=== PATIENT | male | born 1960 | race Caucasian/White ===

== ENCOUNTER 2017-09-27 03:53 | Inpatient (IN) | payer OTHER ==
--- NOTE | 2017-09-27 04:12 | C.PDOC ---
History Of Present Illness Pt presents with right upper quadrant,periumbilical pain. Sudden onset. Some nausea. No f/c. Decreased po intake. Pain occasional radiating to the back Time Seen by Provider: 09/27/17 04:11 Chief Complaint (Nursing): Abdominal Pain History Per: Patient History/Exam Limitations: no limitations Onset/Duration Of Symptoms: Hrs (2) Current Symptoms Are (Timing): Still Present Context: Other Severity: Moderate Pain Scale Rating Of: 5 Location Of Pain/Discomfort: RUQ, Epigastric Radiation Of Pain To:: None Quality Of Discomfort: Sharp, Stabbing Associated Symptoms: Nausea. denies: Fever, Chills, Vomiting Exacerbating Factors: None Alleviating Factors: None Last Bowel Movement: Yesterday Recent travel outside of the [place]: No Additional History Per: Family Past Medical History Reviewed: Historical Data, Nursing Documentation, Vital Signs Vital Signs: Last Vital Signs Temp 97.4 F L 09/27/17 04:07 Pulse 60 09/27/17 05:06 Resp 20 09/27/17 05:06 BP 120/74 09/27/17 05:06 Pulse Ox 97 09/27/17 05:06 Family History: States: No Known Family Hx - Social History Hx Alcohol Use: No Hx Substance Use: No - Immunization History Hx Tetanus Toxoid Vaccination: No Hx Influenza Vaccination: No Hx Pneumococcal Vaccination: No Review Of Systems Constitutional: Negative for: Fever, Chills Eyes: Negative for: Redness ENT: Negative for: Throat Pain Cardiovascular: Negative for: Chest Pain Respiratory: Negative for: Shortness of Breath Gastrointestinal: Positive for: Nausea, Vomiting, Abdominal Pain Genitourinary: Negative for: Dysuria Musculoskeletal: Negative for: Back Pain Skin: Negative for: Rash Neurological: Negative for: Weakness Psych: Negative for: Anxiety Physical Exam - Physical Exam Appears: Non-toxic Skin: Warm, Dry Head: Normacephalic Eye(s): bilateral: Normal Inspection Oral Mucosa: Dry Neck: Supple Chest: Symmetrical Cardiovascular: Rhythm Regular Respiratory: No Rales, No Rhonchi, No Wheezing Gastrointestinal/Abdominal: Bowel Sounds (tympanic to percussion), Soft, Tenderness (ruq and mid epigastric), No Distention, No Guarding, No Rebound Back: No CVA Tenderness Male Genital: No Inguinal Tenderness Extremity: Normal ROM Extremity: Bilateral: Atraumatic Neurological/Psych: Oriented x3, Normal Speech, Normal Cognition Gait: Steady ED Course And Treatment - Laboratory Results Result Diagrams: 09/27/17 04:24 09/27/17 04:24 ECG: Interpreted By Me, Viewed By Me ECG Rhythm: Sinus Rhythm (64), Nonspecific Changes O2 Sat by Pulse Oximetry: 100 Pulse Ox Interpretation: Normal Progress Note: 3:45 AM vitals stable, arousable Disposition Discussed With Dr.: Pee Connell Comment: accepted the pt on his service and took over the care at 6:37AM Doctor Will See Patient In The: Hospital Counseled Patient/Family Regarding: Studies Performed, Diagnosis - Disposition Disposition: HOSPITALIZED Disposition Time: 04:11 Condition: GUARDED Forms: [facility] ([place]) - POA Present On Arrival: Poor Glycemic Control - Clinical Impression Clinical Impression: Abdominal pain, Pancreatic cyst, Pancreatic mass Decision To Admit - Pt Status Changed To: Hospital Disposition Of: Inpatient - Admit Certification Admit to Inpatient:: After my assessment, the patient will require hospitalization for at least two midnights. This is because of the severity of symptoms shown, intensity of services needed, and/or the medical risk in this patient being treated as an outpatient. - InPatient: Physician Admission Certification:: After my assessment, the patient will require hospitalization for at least two midnights. This is because of the severity of symptoms shown, intensity of services needed, and/or the medical risk in this patient being treated as an outpatient. - . Bed Request Type: Regular Admitting Physician: Pee Connell Patient Diagnosis: Abdominal pain, Pancreatic cyst, Pancreatic mass
[2017-09-27] MEDS ORDERED: Sodium Chloride 0.9% 1,000 ML IV ONE ×2 (04:16→06:35)
[2017-09-27] MEDS ORDERED: Morphine 4 MG/ML VIAL ONE (04:23)
[2017-09-27] MEDS ORDERED: Sodium Chloride 0.9% 1,000 ML ONE (04:24)
[2017-09-27 04:26] LABS: BASO % 0.1 % (0.0-2.0); HEMOGLOBIN 14.2 g/dL (12.0-18.0); LYMPH # 1.1 K/uL (1.0-4.3); LYMPH % 8.4 % (20.0-40.0); MEAN CELL VOLUME 87.6 fL (80.0-94.0); MEAN CORPUSCULAR HEMOGLOBIN 30.6 pg (27.0-31.0); MEAN CORPUSCULAR HGB CONC 34.9 g/dL (33.0-37.0); MEAN PLATELET VOLUME 7.7 fL (7.2-11.7); MONO # 0.6 K/uL (0.0-0.8); MONO % 4.1 % (0.0-10.0); NEUT # 11.7 K/uL (1.8-7.0); NEUT % 87.4 % (50.0-75.0); PLATELET COUNT 243 K/uL (130-400); RBC 4.63 Mil/uL (4.40-5.90); RED CELL DISTRIBUTION WIDTH 14.5 % (11.5-14.5); WHITE BLOOD COUNT 13.4 K/uL (4.8-10.8)
[2017-09-27 04:35] LABS: PROTHROMBIN TIME 11.7 SECONDS (9.7-12.2)
[2017-09-27 04:35] LABS: URINE BILIRUBIN NEGATIVE (NEGATIVE); URINE BLOOD NEGATIVE (NEGATIVE); URINE CLARITY Hazy (Clear); URINE COLOR Yellow (YELLOW); URINE GLUCOSE (UA) NORMAL (Normal); URINE LEUKOCYTE ESTERASE NEG Leu/uL (Negative); URINE PROTEIN NEGATIVE (NEGATIVE); URINE UROBILINOGEN NORMAL mg/dL (0.2-1.0)
[2017-09-27 04:39] LABS: ALB/GLOB RATIO 1.5 (1.0-2.1); ALT/SGPT 29 U/L (21-72); AST/SGOT 17 U/L (17-59); BLOOD UREA NITROGEN 10 mg/dL (9-20); CALCIUM 8.2 mg/dl (8.6-10.4); GFR AFRICAN-AMERICAN > 60; GFR NON-AFRICAN AMERICAN > 60; LIPASE 65 U/L (23-300)
[2017-09-27] MEDS ORDERED: Iodixanol 320 MG/ML 100 ML BOTTLE IV ONE ×2 (04:44→14:01)
[2017-09-27 04:50] LABS: BANDS 1 % (0-2); LYMPHOCYTE 8 % (20-40); MONOCYTE 5 % (0-10); NEUTROPHIL 86 % (50-75); PLATELET ESTIMATE NORMAL (NORMAL); TOTAL CELLS COUNTED 100
--- NOTE | 2017-09-27 05:38 | CT ---
EXAM: CT Abdomen and Pelvis Without Intravenous Contrast CLINICAL HISTORY: 57 years old, male; Pain; Abdominal pain; Additional info: R flank pain TECHNIQUE: Axial computed tomography images of the abdomen and pelvis without intravenous contrast. All CT scans at this facility use one or more dose reduction techniques, viz.: automated exposure control; ma/kV adjustment per patient size (including targeted exams where dose is matched to indication; i.e. head); or iterative reconstruction technique. 698 images are submitted. Coronal and sagittal reformatted images were created and reviewed. Axial reformatted images were created and reviewed. COMPARISON: No relevant prior studies available. FINDINGS: Lower thorax: There is bibasilar atelectasis. ABDOMEN:Limitations: Absence of IV contrast decreases sensitivity for detecting vascular and visceral injury and abnormality. Liver: Unremarkable. Gallbladder and bile ducts: Unremarkable. No ductal dilation. Pancreas: There is a large hypodense pancreatic tail mass measuring 8.5 x 7.7 cm representing pseudocyst versus pancreatic neoplasm. Spleen: Unremarkable. No splenomegaly. Adrenals: Unremarkable. No mass. Kidneys and ureters: Faint densities in the medullary regions of both kidneys are somewhat nonspecific, perhaps reflecting dense solute, Philip's plaque, tiny calcifications, or other debris. Stomach and bowel: Diverticulosis. Nonspecific thickening of the colon likely due to underdistention versus nonspecific colitis. Appendix: Normal appendix. PELVIS: Bladder: Unremarkable. Reproductive: Enlarged prostate gland with calcification. Possible hydrocele. ABDOMEN and PELVIS: Intraperitoneal space: Unremarkable. No free air. No significant fluid collection. Bones/joints: No acute fracture. No dislocation. Soft tissues: Unremarkable. Vasculature: Unremarkable. No abdominal aortic aneurysm. Lymph nodes: Unremarkable. No enlarged lymph nodes. IMPRESSION: 1. There is a large hypodense pancreatic tail mass measuring 8.5 x 7.7 cm representing pseudocyst versus pancreatic neoplasm.
[2017-09-27 10:17] LABS: AMYLASE 72 U/L (30-110)
--- NOTE | 2017-09-27 12:38 | CP.PCM.PN ---
Subjective - Date & Time of Evaluation Date of Evaluation: 09/27/17 Time of Evaluation: 12:35 - Subjective Subjective: CC: abdominal pain and vomiting This is a 57yo M who came to the hospital for abdominal pain and vomiting; he states he has had this happen one time before 2 months ago but not associated with vomiting; he states his abdomen feels "full" and that the pain will not go away and he does not feel like eating either. He currently denies fevers/chills , CADENA, CP, SOB, abdominal pain, N/V/d, dysuria/freq/urg or lower extremity pain/ swelling. PMhx: denies Meds: denies Surgeries: Denies Allergies: denies Famhx: HTN on mom and dads side, as well as DM Social: smokes 1/2 to 1 pack per day for 35 years, social drinker on weekends, indepdendent in all IADL and ADL Objective - Vital Signs/Intake and Output Vital Signs (last 24 hours): Temp Pulse Resp BP Pulse Ox 98 F 69 20 141/70 97 09/27/17 07:48 09/27/17 07:48 09/27/17 07:48 09/27/17 07:48 09/27/17 07:48 - Medications Medications: Current Medications Belladonna/Phenobarbital () 1 tab PO TID VANDANA Sodium Chloride (Sodium Chloride 0.9%) 1,000 mls @ 100 mls/hr IV .Q10H ONE Stop: 09/27/17 16:34 Last Admin: 09/27/17 10:33 Dose: 100 mls/hr Morphine Sulfate (Morphine) 4 mg IVP Q4H PRN PRN Reason: Pain, severe (8-10) Ondansetron HCl (Zofran Inj) 4 mg IVP Q6H PRN PRN Reason: Nausea/Vomiting Pneumococcal Polyvalent Vaccine (Pneumovax 23 Vaccine) 0.5 ml IM .ONCE ONE Stop: 09/29/17 10:01 - Labs Labs: 09/27/17 04:24 09/27/17 04:24 PT 11.7 SECONDS (9.7-12.2) 09/27/17 04:16 INR 1.0 09/27/17 04:16 APTT 26 SECONDS (21-34) 09/27/17 04:16 - Constitutional Appears: Well, Non-toxic - Head Exam Head Exam: ATRAUMATIC, NORMAL INSPECTION - Eye Exam Eye Exam: EOMI - ENT Exam ENT Exam: Mucous Membranes Moist - Neck Exam Neck Exam: Full ROM. absent: Lymphadenopathy - Respiratory Exam Respiratory Exam: Clear to Ausculation Bilateral, NORMAL BREATHING PATTERN. absent: Rales, Rhonchi, Wheezes - Cardiovascular Exam Cardiovascular Exam: REGULAR RHYTHM, +S1, +S2 - GI/Abdominal Exam GI & Abdominal Exam: Soft, Normal Bowel Sounds. absent: Tenderness, Organomegaly - Extremities Exam Extremities Exam: Full ROM. absent: Calf Tenderness - Back Exam Back Exam: NORMAL INSPECTION. absent: CVA tenderness (L), CVA tenderness (R) - Neurological Exam Neurological Exam: Alert, Awake, Oriented x3 - Skin Skin Exam: Warm Assessment and Plan - Assessment and Plan (Free Text) Assessment: 57yo M admitted to the hospital for abdominal pain and vomiting, found to have pancreatic cyst vs neoplasm Pancreatic Cyst vs Neoplasm -CT Abdomen shows cyst vs neoplasm; please refer to full report -MRCP w/ and w/o contrast ordered, as well as CT w/ contast; f/u results -Surgery; Dr. Solomon on board; thank you for your help; appreciate recs -f/u CEA and CA-19-9 markers AFP, hepatitis panel, TSH, HIV, Lipid Panel as well as HBa1C -CMP WNL no liver abnormalities or elevated bili Proph -Regular diet unless procedures are planned -pepcid -lovenox All management as per Dr. Connell
[2017-09-27] MEDS ORDERED: Gadodiamide 287 mg/ml 20 ml IV ONE (13:00)
--- NOTE | 2017-09-27 13:15 | CP.PCM.CON ---
History of Present Illness - History of Present Illness History of Present Illness: Hepatobiliary Surgery: Dr Solomon Pt is a pleasant 57M who presented to ED with sudden onset abdominal pain. Pt reports pain is epigastric and radiates to the mid back. States pain was 10/10 at one point but now is more of a dull 3/10. Pain was associated with 2 episodes of emesis, non-blood and non-billous. Not associated with eating. Pt denies any history of fevers, chills, sweats, recent weight loss, jaundice, anorexia, diarrhea or constipation. States he believes he had one similar episode a few months back but that resolved on its own. CT scan in ED demonstrated distal pancreatic tail mass concerning for psuedocyst vs neoplasm. PMH: none PSH; none Fam Hx: Mother/Father with HTN, denies cancer history Social: 1/2 ppd smoker, social drinker Review of Systems - Review of Systems All systems: reviewed and no additional remarkable complaints except (as per hpi ) Past Patient History - Past Medical History & Family History Past Medical History?: No - Past Social History Smoking Status: Unknown If Ever Smoked - MUSCULOSKELETAL/RHEUMATOLOGICAL Hx Falls: No - PSYCHIATRIC Hx Substance Use: No - SURGICAL HISTORY Hx Surgeries: No - ANESTHESIA Hx Anesthesia: No Meds Allergies/Adverse Reactions: Allergies Allergy/AdvReac Type Severity Reaction Status Date / Time No Known Allergies Allergy Verified 09/27/17 04:10 - Medications Medications: Current Medications Belladonna/Phenobarbital () 1 tab PO TID VANDANA Enoxaparin Sodium (Lovenox) 40 mg SC DAILY VANDANA Famotidine (Pepcid) 20 mg PO DAILY VANDANA Sodium Chloride (Sodium Chloride 0.9%) 1,000 mls @ 100 mls/hr IV .Q10H ONE Stop: 09/27/17 16:34 Last Admin: 09/27/17 10:33 Dose: 100 mls/hr Morphine Sulfate (Morphine) 4 mg IVP Q4H PRN PRN Reason: Pain, severe (8-10) Ondansetron HCl (Zofran Inj) 4 mg IVP Q6H PRN PRN Reason: Nausea/Vomiting Pneumococcal Polyvalent Vaccine (Pneumovax 23 Vaccine) 0.5 ml IM .ONCE ONE Stop: 09/29/17 10:01 Physical Exam - Constitutional Appears: Non-toxic, No Acute Distress - Eye Exam Eye Exam: EOMI, Normal appearance, PERRL. absent: Scleral icterus - ENT Exam ENT Exam: Mucous Membranes Moist - Respiratory Exam Respiratory Exam: absent: Accessory Muscle Use, Respiratory Distress - Cardiovascular Exam Cardiovascular Exam: REGULAR RHYTHM. absent: Tachycardia - GI/Abdominal Exam GI & Abdominal Exam: Soft. absent: Distended, Firm, Guarding, Hernia, Mass, Rigid, Tenderness - Extremities Exam Extremities exam: Negative for: pedal edema - Neurological Exam Neurological exam: Alert, Oriented x3 - Psychiatric Exam Psychiatric exam: Normal Affect, Normal Mood - Skin Skin Exam: Normal Color, Warm Results - Vital Signs Recent Vital Signs: Last Vital Signs Temp 98 F 09/27/17 07:48 Pulse 69 09/27/17 07:48 Resp 20 09/27/17 07:48 BP 141/70 09/27/17 07:48 Pulse Ox 97 09/27/17 07:48 - Labs Result Diagrams: 09/27/17 04:24 09/27/17 04:24 Labs: Laboratory Results - last 24 hr 09/27/17 09/27/17 09/27/17 04:16 04:24 04:24 WBC 13.4 H RBC 4.63 Hgb 14.2 Hct 40.6 MCV 87.6 MCH 30.6 MCHC 34.9 RDW 14.5 Plt Count 243 MPV 7.7 Neut % (Auto) 87.4 H Lymph % (Auto) 8.4 L Mcduffie % (Auto) 4.1 Eos % (Auto) 0.0 Baso % (Auto) 0.1 Neut # (Auto) 11.7 H Lymph # (Auto) 1.1 [place]duffie # (Auto) 0.6 Eos # (Auto) 0.0 Baso # (Auto) 0.0 Neutrophils % (Manual) 86 H Band Neutrophils % 1 Lymphocytes % (Manual) 8 L Monocytes % (Manual) 5 Platelet Estimate Normal PT 11.7 INR 1.0 APTT 26 Sodium Potassium Chloride Carbon Dioxide Anion Gap BUN Creatinine Est GFR ( Amer) Est GFR (Non-Af Amer) Random Glucose Calcium Total Bilirubin AST ALT Alkaline Phosphatase Total Protein Albumin Globulin Albumin/Globulin Ratio Amylase Lipase Carcinoembryonic Ag CA 19-9 Antigen Urine Color Yellow Urine Clarity Hazy Urine pH 7.0 Ur Specific [place] 1.027 Urine Protein Negative Urine Glucose (UA) Normal Urine Ketones Trace Urine Blood Negative Urine Nitrate Negative Urine Bilirubin Negative Urine Urobilinogen Normal Ur Leukocyte Esterase Neg Urine WBC (Auto) 1 Urine RBC (Auto) 5 H 09/27/17 09/27/17 04:24 11:12 WBC RBC Hgb Hct MCV MCH MCHC RDW Plt Count MPV Neut % (Auto) Lymph % (Auto) [place]duffie % (Auto) Eos % (Auto) Baso % (Auto) Neut # (Auto) Lymph # (Auto) [place]duff[place] # (Auto) Eos # (Auto) Baso # (Auto) Neutrophils % (Manual) Band Neutrophils % Lymphocytes % (Manual) Monocytes % (Manual) Platelet Estimate PT INR APTT Sodium 140 Potassium 4.1 Chloride 103 Carbon Dioxide 24 Anion Gap 17 BUN 10 Creatinine 0.7 L Est GFR ( Amer) > 60 Est GFR (Non-Af Amer) > 60 Random Glucose 136 H Calcium 8.2 L Total Bilirubin 0.3 AST 17 ALT 29 Alkaline Phosphatase 79 Total Protein 6.7 Albumin 4.0 Globulin 2.7 Albumin/Globulin Ratio 1.5 Amylase 72 Lipase 65 Carcinoembryonic Ag 1.5 CA 19-9 Antigen 9.0 Urine Color Urine Clarity Urine pH Ur Specific [place] Urine Protein Urine Glucose (UA) Urine Ketones Urine Blood Urine Nitrate Urine Bilirubin Urine Urobilinogen Ur Leukocyte Esterase Urine WBC (Auto) Urine RBC (Auto) Assessment & Plan - Assessment and Plan (Free Text) Assessment: 57M with distal pancreatic tail mass Plan: CEA, CA-19-[address] but with IV contrast further recommendations to follow pending results d/w Dr Juanito Park, PGY3 - Date & Time Date: 09/27/17 Time: 11:58
[2017-09-27] MEDS: Belladonna-Phenobarbital PO SCH ×2 (14:37→18:02)
--- NOTE | 2017-09-27 14:43 | MRI ---
MRI abdomen without/with IV contrast MRCP Indication: Pancreatic mass Technique: Multiplanar, multi sequence magnetic resonance images of the abdomen were obtained without and with the administration of intravenous gadolinium using a multi phase abdomen protocol. Rotating maximum intensity projection images of the biliary system were generated. A total of 1055 images submitted for review Comparison: CT abdomen and pelvis without contrast performed 09/27/17 Findings: Cholelithiasis. There is no intrahepatic biliary ductal dilatation. The common bile duct appears within normal limits in caliber and tapers distally. The pancreatic duct appears within normal limits of caliber. No filling defects are seen in the common bile duct or pancreatic duct. 7.9 x 7.2 cm cystic lesion at the level of the pancreatic tail without evidence of post-contrast enhancement. The liver, spleen, and adrenal glands appear grossly unremarkable. The kidneys enhance symmetrically. No evidence of hydronephrosis or obstructing calculus. No bulky adenopathy identified. Limited views of the inferior thorax appear unremarkable. Impression: 7.9 x 7.2 cm cystic lesion at the level the pancreatic tail. Differential diagnosis includes cystic neoplasm versus sequela of prior pancreatitis (such as pseudocyst). No filling defects seen within the common bile duct which appears within normal limits of caliber. Cholelithiasis.
--- NOTE | 2017-09-27 17:30 | CARD ---
APPROVED REPORT EKG Measurement Heart [id number] <Conclusion> Normal sinus rhythm Normal ECG
[2017-09-27] MEDS ORDERED: Morphine 4 MG/ML VIAL IVP PRN (20:30)
--- NOTE | 2017-09-28 04:32 | CON ---
DATE: 09/27/2017. LOCATION: 369, bed A. This is from Dr. Andrew to Dr. Pee Connell. I was called for GI consultation by the admitting MD as well as the ER staff. The patient is seen and fully examined on 09/27/2017 for GI consultation. The entire chart is reviewed including but not limited to most recent lab and radiology study results, current and the previous medication list, current and the previous medical events, allergy to medication list, as well as all the available current and previous medical records. Case discussed at length with staff GI consultation. HISTORY OF PRESENT ILLNESS: This is a 57-year-old male who was admitted to hospital through the emergency room with the main complain of mid epigastric and right upper abdominal pain as well as periumbilical pain sudden in onset with associated dyspepsia and nausea, but no reported active bleeding. No vomiting, but loss of appetite recently with decrease oral intake. The patient radiate occasionally to the back. No chest pain or palpitations. No reported active bleeding. No chills or fever. PAST MEDICAL HISTORY: Is limited, but not related to major disease. ALLERGIES: TO MEDICATIONS, NONE KNOWN. CURRENT MEDICATIONS: Medication lists were reviewed post admission. FAMILY HISTORY: Unknown. SOCIAL HISTORY: Denied any cigarette smoking or alcohol intake. LABORATORY DATA: After being admitted to the hospital, the patient was found to have normal CBC, but elevated white blood cell to 13.4, increased blood glucose level 136. Initial CAT scan of the abdomen and pelvis was done indicative of possible pancreatic pseudocyst versus pancreatic mass lesion with possible gallbladder small stones. PHYSICAL EXAMINATION: GENERAL: A 57 years old male, speaks Faroese only, all the information are obtained from medical record and medical staff and nursing staff notes as well as through internship. The patient appears to be awake, alert and oriented, afebrile with pulse of 62, respiratory 20 to 22, blood pressure 124/72. HEENT: Showed pale dry oral mucoid membrane. Nonicteric sclerae. LUNGS: A few scattered crepitation. Decreased air entry at bases. HEART: Positive S1 and S2. LYMPH NODES: No lymphadenitis or lymphadenopathy. ABDOMEN: Soft with mid epigastric as well as right upper quadrant mid abdominal line tenderness. No mass or organomegaly. No rebound tenderness or guarding. RECTAL: The patient refused. EXTREMITIES: Without significant clubbing, cyanosis or edema. NEUROLOGIC: No reported new neurological deficits, sensory or motor. IMPRESSION: 1. Abnormal CAT scan of the abdomen with possible pancreatic pseudocyst versus pancreatic mass lesion with possible early stage of acute pancreatitis. 2. Peptic ulcer disease. SUGGESTIONS: 1. Agree with your plan. 2. Lipid profile with repeat serum, lipase and amylase level. 3. CEA, CA 19-9, and alpha fetoprotein. 4. Proton pump inhibitors IV. 5. MRCP for more details due to the pancreatic lesion. 6. The patient may need CAT scan guided needle biopsy of the pancreatic lesion to be done by IR staff. 7. Further recommendation to follow. Rudi Andrew MD
[2017-09-28 07:34] LABS: BASO % 0.5 % (0.0-2.0); EOS # 0.1 K/uL (0.0-0.7); EOS % 0.7 % (0.0-4.0); HEMOGLOBIN 14.1 g/dL (12.0-18.0); LYMPH # 2.2 K/uL (1.0-4.3); LYMPH % 24.2 % (20.0-40.0); MEAN CELL VOLUME 89.1 fL (80.0-94.0); MEAN CORPUSCULAR HEMOGLOBIN 31.3 pg (27.0-31.0); MEAN CORPUSCULAR HGB CONC 35.2 g/dL (33.0-37.0); MEAN PLATELET VOLUME 7.8 fL (7.2-11.7); MONO # 0.6 K/uL (0.0-0.8); MONO % 6.9 % (0.0-10.0); NEUT # 6.2 K/uL (1.8-7.0); NEUT % 67.7 % (50.0-75.0); NRBC % 0.1 % (0.0-2.0); RBC 4.49 Mil/uL (4.40-5.90); RED CELL DISTRIBUTION WIDTH 14.2 % (11.5-14.5); WHITE BLOOD COUNT 9.2 K/uL (4.8-10.8)
--- NOTE | 2017-09-28 07:38 | HP ---
HISTORY OF PRESENT ILLNESS: This is a 57-year-old male with chief complaint of abdominal pain. The patient came to the ER found to have a mass in the pancreas advised admission. The patient does not smoke. PHYSICAL EXAMINATION: GENERAL: The patient is awake, alert, and oriented. VITAL SIGNS: Temperature 98 and pulse 90. HEENT: Within normal limits. NECK: Supple. CHEST: Symmetrical. HEART: Regular. ABDOMEN: Soft. EXTREMITIES: No edema. ASSESSMENT AND PLAN: The patient has a lot of pancreatic mass. The patient on bed rest. CT of the abdomen, MRCP, biliary surgery consult. Pee Connell MD
[2017-09-28 08:11] LABS: ALB/GLOB RATIO 1.1 (1.0-2.1); ALBUMIN 3.7 g/dL (3.5-5.0); ALT/SGPT 31 U/L (21-72); AST/SGOT 24 U/L (17-59); BLOOD UREA NITROGEN 5 mg/dL (9-20); CALCIUM 8.6 mg/dl (8.6-10.4); GFR AFRICAN-AMERICAN > 60; GFR NON-AFRICAN AMERICAN > 60; HDL CHOLESTEROL 48 mg/dL (30-70)
[2017-09-28 08:21] LABS: LDL CHOLESTEROL 97 mg/dL (0-129)
[2017-09-28 09:02] LABS: HEPATITIS B SURFACE AG Negative (NEGATIVE)
[2017-09-28 09:09] LABS: HEPATITIS A IGM NEGATIVE (NEGATIVE); HEPATITIS B CORE AB NEGATIVE (NEGATIVE)
[2017-09-28 09:19] LABS: HEPATITIS C ANTIBODY NEGATIVE (NEGATIVE)
[2017-09-28] MEDS: Belladonna-Phenobarbital PO SCH ×3 (09:57→17:43)
[2017-09-28] MEDS: Enoxaparin 40 mg Syringe SC SCH (09:58)
--- NOTE | 2017-09-28 10:39 | CT ---
PROCEDURE: CT Abdomen and Pelvis with contrast HISTORY: eval panc mass COMPARISON: CT abdomen/ pelvis 09/27/2017 and MRI abdomen 09/27/2017 TECHNIQUE: Contrast dose: 100 cc Visipaque 320 Radiation dose: Total exam DLP = 1307.15 mGy-cm. This CT exam was performed using one or more of the following dose reduction techniques: Automated exposure control, adjustment of the mA and/or kV according to patient size, and/or use of iterative reconstruction technique. FINDINGS: LOWER THORAX: Bilateral lower lobe linear pleural-based scar/atelectasis LIVER: Unremarkable. No gross lesion or ductal dilatation. GALLBLADDER AND BILE DUCTS: Unremarkable. PANCREAS: Fluid density pancreatic tail mass measuring approximately 7.6 x 8.7 by 8.9 cm. Thin peripheral enhancing wall common nonspecific. No nodular mural thickening. No central solid component appreciated. Nonspecific. Pancreatic cyst versus intrapancreatic pseudocyst versus cystic pancreatic neoplasm. No pancreatic ductal dilatation. SPLEEN: Unremarkable. ADRENALS: Unremarkable. No mass. KIDNEYS AND URETERS: Unremarkable. No hydronephrosis. No solid mass. VASCULATURE: Unremarkable. No aortic aneurysm. BOWEL: Unremarkable. No obstruction. No gross mural thickening. APPENDIX: Normal appendix. PERITONEUM: Unremarkable. No free fluid. No free air. LYMPH NODES: Unremarkable. No enlarged lymph nodes. BLADDER: Suboptimally distended. Mild mural thickening consistent with poor distension. REPRODUCTIVE: Normal prostate BONES: No acute fracture. OTHER FINDINGS: None. IMPRESSION: 8.9 cm fluid density pancreatic tail mass common nonspecific. See above. No other significant abnormality.
--- NOTE | 2017-09-28 10:56 | CP.PCM.PN ---
Subjective - Date & Time of Evaluation Date of Evaluation: 09/28/17 Time of Evaluation: 11:00 - Subjective Subjective: PGY2 Medicine Note for Dr. Connell; all management as per Dr. Connell This patient was seen and examined at bedside this AM; deneis any acute complaints or overnight events; denies fevers/chills, CADENA, CP, SOB, abdominal pain, N/V/D, dysuria/freq/urg or lower extremity pain/swelling. Objective - Vital Signs/Intake and Output Vital Signs (last 24 hours): Temp Pulse Resp BP Pulse Ox 98.4 F 72 20 114/76 96 09/28/17 07:57 09/28/17 07:57 09/28/17 07:57 09/28/17 07:57 09/28/17 07:57 Intake and Output: 09/28/17 09/28/17 06:59 18:59 Intake Total 800 Balance 800 - Medications Medications: Current Medications Belladonna/Phenobarbital () 1 tab PO TID [facility] Last Admin: 09/28/17 09:57 Dose: 1 tab Enoxaparin Sodium (Lovenox) 40 mg SC DAILY [facility] Last Admin: 09/28/17 09:58 Dose: 40 mg Famotidine (Pepcid) 20 mg PO DAILY [facility] Last Admin: 09/28/17 09:57 Dose: 20 mg Morphine Sulfate (Morphine) 4 mg IVP Q4H PRN PRN Reason: Pain, severe (8-10) Ondansetron HCl (Zofran Inj) 4 mg IVP Q6H PRN PRN Reason: Nausea/Vomiting Pneumococcal Polyvalent Vaccine (Pneumovax 23 Vaccine) 0.5 ml IM .ONCE ONE Stop: 09/29/17 10:01 - Labs Labs: 09/28/17 07:22 09/28/17 07:22 PT 11.7 SECONDS (9.7-12.2) 09/27/17 04:16 INR 1.0 09/27/17 04:16 APTT 26 SECONDS (21-34) 09/27/17 04:16 - Constitutional Appears: Well, Non-toxic - Head Exam Head Exam: ATRAUMATIC, NORMAL INSPECTION - Eye Exam Eye Exam: EOMI, Normal appearance, PERRL. absent: Scleral icterus - ENT Exam ENT Exam: Mucous Membranes Moist - Neck Exam Neck Exam: Full ROM. absent: Lymphadenopathy - Respiratory Exam Respiratory Exam: Clear to Ausculation Bilateral, NORMAL BREATHING PATTERN. absent: Rales, Rhonchi, Wheezes - Cardiovascular Exam Cardiovascular Exam: REGULAR RHYTHM, +S1, +S2 - GI/Abdominal Exam GI & Abdominal Exam: Soft, Normal Bowel Sounds. absent: Tenderness, Organomegaly - Extremities Exam Extremities Exam: Full ROM. absent: Calf Tenderness, Joint Swelling - Back Exam Back Exam: NORMAL INSPECTION. absent: CVA tenderness (L), CVA tenderness (R) - Neurological Exam Neurological Exam: Alert, Awake, Normal Gait, Oriented x3 - Psychiatric Exam Psychiatric exam: Normal Affect - Skin Skin Exam: Warm Assessment and Plan - Assessment and Plan (Free Text) Assessment: 57yo M admitted to the hospital for abdominal pain and vomiting, found to have pancreatic cyst vs neoplasm Pancreatic Cyst vs Neoplasm -CT Abdomen shows cyst vs neoplasm; please refer to full report -MRCP confirms mass in the pancreas; neoplasm vs cyst; please refer to full report -Surgery; Dr. Solomon on board; thank you for your help; appreciate recs plan is for surgery next week on sunday/sunday; do not advise d/c before he has surgery -CEA and CA-19-9 markers AFP all WNL hepatitis panel neg, TSH .82, HIV neg, Lipid Panel WNL as well as HBa1C shows IGT -CMP WNL no liver abnormalities or elevated bili IGT diet and lifestyle modifications for patient Hba1c 6.0 recommend f/u in 6 months Proph -Regular diet unless procedures are planned -pepcid -lovenox All management as per Dr. Connell Dispo: as per surgery, they would like to keep the patient over the weekend because of the possibility that the psuedocyst could rupture, or that he could have a bout of acute cholycystis again; the patient will need to stay over the weekend for a planned cholycystectomy next week on most likely sunday
--- NOTE | 2017-09-28 17:31 | PN ---
DATE: LOCATION: [facility], bed A. SUBJECTIVE: This is a 57-year-old male seen and examined in rounds without significant clinical changes or reported active bleeding, but with intermittent periods of abdominal pain. Seen with surgery nurse from the staff. The entire chart is reviewed including but not limited to the most recent lab and radiology study results, current and the previous medication list, current and the previous medical events. Case discussed with the staff at length. The patient has no chills or fever. No chest pain or palpitation. The patient had pancreatic CAT scan as well as MRCP indicative of about 9-cm pancreatic tail mass, most likely cystic in nature. MRCP also was done yesterday indicative of cystic lesion with the pancreatic tear, with possible pseudocyst versus cystic neoplasm. Lab results today showed normal CBC with low BUN of 5, blood glucose level 123, with normal liver function test and normal cancer markers. PHYSICAL EXAMINATION: GENERAL: A 57-year-old male, awake, alert, and oriented. VITAL SIGNS: Afebrile, with pulse of 70, respiratory rate of 20 to 22, blood pressure of 120/74. HEENT: Showed pale dry oral mucous membrane, nonicteric sclerae. LUNGS: Few scattered crepitations. Decreased air entry at bases. HEART: Positive S1 and S2. ABDOMEN: Soft. Bowel sounds are present. No mass or organomegaly. No rebound tenderness or guarding. EXTREMITIES: Without significant edema, clubbing, or cyanosis. NEUROLOGIC: No reported new neurological deficits, sensory or motor. 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 SUGGESTIONS: 1. Continue current management. 2. Surgical reevaluation and followup. 3. Reviewed serum lipase and amylase level. Further evaluation to follow. Rudi Andrew MD
--- NOTE | 2017-09-28 17:46 | CP.PCM.PN ---
Subjective - Date & Time of Evaluation Date of Evaluation: 09/28/17 Time of Evaluation: 08:00 - Subjective Subjective: Surgery:Dr. Solomon Pt seen and examined. No acute overnight events. States he feels well and doesn' t have any complaints at this time. Denies abdominal pain or N/V. Tolerating liquids. Denies F/C. Objective - Vital Signs/Intake and Output Vital Signs (last 24 hours): Temp Pulse Resp BP Pulse Ox 98.5 F 71 20 112/68 97 09/28/17 17:37 09/28/17 17:37 09/28/17 17:37 09/28/17 17:37 09/28/17 17:37 Intake and Output: 09/28/17 09/28/17 06:59 18:59 Intake Total 800 Balance 800 - Medications Medications: Current Medications Belladonna/Phenobarbital () 1 tab PO TID [facility] Last Admin: 09/28/17 17:43 Dose: 1 tab Enoxaparin Sodium (Lovenox) 40 mg SC DAILY [facility] Last Admin: 09/28/17 09:58 Dose: 40 mg Famotidine (Pepcid) 20 mg PO DAILY [facility] Last Admin: 09/28/17 09:57 Dose: 20 mg Morphine Sulfate (Morphine) 4 mg IVP Q4H PRN PRN Reason: Pain, severe (8-10) Ondansetron HCl (Zofran Inj) 4 mg IVP Q6H PRN PRN Reason: Nausea/Vomiting Pneumococcal Polyvalent Vaccine (Pneumovax 23 Vaccine) 0.5 ml IM .ONCE ONE Stop: 09/29/17 10:01 - Labs Labs: 09/28/17 07:22 09/28/17 07:22 PT 11.7 SECONDS (9.7-12.2) 09/27/17 04:16 INR 1.0 09/27/17 04:16 APTT 26 SECONDS (21-34) 09/27/17 04:16 - Constitutional Appears: Well, No Acute Distress - Head Exam Head Exam: ATRAUMATIC, NORMOCEPHALIC - Eye Exam Eye Exam: Normal appearance - ENT Exam ENT Exam: Mucous Membranes Moist - Respiratory Exam Respiratory Exam: NORMAL BREATHING PATTERN - Cardiovascular Exam Cardiovascular Exam: RRR - GI/Abdominal Exam GI & Abdominal Exam: Soft. absent: Distended, Tenderness - Neurological Exam Neurological Exam: Alert, Awake, Oriented x3 - Skin Skin Exam: Dry, Warm Assessment and Plan - Assessment and Plan (Free Text) Assessment: 57M with pancreatic tail mass likely pseudocyst Plan: - will plan for OR on tues for cholecystectomy and cyst jejunostomy - can feed in the meantime as long as no pain - d/w Dr. Juanito Jenkins, PGY-3
[2017-09-29 08:23] LABS: BASO % 0.4 % (0.0-2.0); EOS # 0.1 K/uL (0.0-0.7); HEMOGLOBIN 13.6 g/dL (12.0-18.0); LYMPH # 2.1 K/uL (1.0-4.3); LYMPH % 26.1 % (20.0-40.0); MEAN CELL VOLUME 88.4 fL (80.0-94.0); MEAN CORPUSCULAR HEMOGLOBIN 30.2 pg (27.0-31.0); MEAN CORPUSCULAR HGB CONC 34.2 g/dL (33.0-37.0); MEAN PLATELET VOLUME 7.8 fL (7.2-11.7); MONO # 0.6 K/uL (0.0-0.8); MONO % 7.8 % (0.0-10.0); NEUT # 5.2 K/uL (1.8-7.0); NEUT % 64.7 % (50.0-75.0); NRBC % 0.2 % (0.0-2.0); RBC 4.49 Mil/uL (4.40-5.90); RED CELL DISTRIBUTION WIDTH 14.3 % (11.5-14.5)
[2017-09-29 08:39] LABS: ALB/GLOB RATIO 1.1 (1.0-2.1); ALBUMIN 3.3 g/dL (3.5-5.0); ALT/SGPT 27 U/L (21-72); AST/SGOT 18 U/L (17-59); BLOOD UREA NITROGEN 8 mg/dL (9-20); CALCIUM 8.5 mg/dl (8.6-10.4); GFR AFRICAN-AMERICAN > 60; GFR NON-AFRICAN AMERICAN > 60
[2017-09-29] MEDS: Enoxaparin 40 mg Syringe SC SCH (09:16)
[2017-09-29] MEDS: Belladonna-Phenobarbital PO SCH ×3 (09:20→17:39)
[2017-09-29] MEDS ORDERED: Pneumococcal 23-Valent Vaccine IM ONE (10:00)
[2017-09-29] MEDS ORDERED: Influenza Vaccine 60 mcg/0.5 mL SYR (4YR UP) IM ONE (10:00)
--- NOTE | 2017-09-29 11:34 | PN ---
DATE: LOCATION: [facility], [facility] B. SUBJECTIVE: This is a 57-year-old male seen and examined in rounds without significant clinical changes, but intermittent period of abdominal pain. No chest pain. No palpitation. No reported complaint of significant shortness of breath. Tolerating liquid diet so far well. The entire chart is reviewed including, but not limited to, the most recent lab and radiology study results, current and the previous medication list, current and the previous medical events. Today's labs are still pending, but the latest blood glucose level is 120. All the radiology study results seen. PHYSICAL EXAMINATION: GENERAL: A 57-year-old male, Zambian spoken, seen with a [place]ambian spoken nursing staff as [employer], appears to be awake, alert, oriented. VITAL SIGNS: Afebrile with heart rate of 74, respiratory rate 20 to 22, blood pressure 108/64. HEENT: Showed a pale, dry oral mucous membrane. Nonicteric sclerae. LUNGS: Few scattered crepitation. Decreased air entry at bases. HEART: Positive S1 and S2. ABDOMEN: Soft with slight generalized tenderness. No mass or organomegaly. No rebound tenderness or guarding. EXTREMITIES: Without significant edema, clubbing, or cyanosis. NEUROLOGIC: No reported new neurologic deficit, sensory or motor. Peripheral pulses are present bilaterally. IMPRESSION: 1. Pancreatic cystic mass lesion, possibility of pancreatic pseudocyst versus neoplastic lesion was raised as per also the radiology study results. 2. Re-exacerbation of peptic ulcer disease. SUGGESTIONS: 1. Continue current management. 2. Surgical reevaluation. 3. Follow up cancer markers. Rudi Andrew MD
--- NOTE | 2017-09-29 13:31 | CP.PCM.PN ---
Subjective - Date & Time of Evaluation Date of Evaluation: 09/29/17 Time of Evaluation: 06:45 - Subjective Subjective: Surgery Progress note. Dr. Solomon Pt seen and examined at bedside. No acute events overnight. Patient denies any new complaints. Only mild abdominal pain at times. Denies N/V/D. Tolerating diet. Agreeable to having surgery early next week. No CP/SOB. No F/C. Objective - Vital Signs/Intake and Output Vital Signs (last 24 hours): Temp Pulse Resp BP Pulse Ox 98.5 F 76 20 98/64 L 96 09/29/17 07:41 09/29/17 07:41 09/29/17 07:41 09/29/17 07:41 09/29/17 07:41 Intake and Output: 09/29/17 09/29/17 06:59 18:59 Intake Total 390 Balance 390 - Medications Medications: Current Medications Belladonna/Phenobarbital () 1 tab PO TID [facility] Last Admin: 09/29/17 09:20 Dose: 1 tab Enoxaparin Sodium (Lovenox) 40 mg SC DAILY [facility] Last Admin: 09/29/17 09:16 Dose: 40 mg Famotidine (Pepcid) 20 mg PO DAILY [facility] Last Admin: 09/29/17 09:16 Dose: 20 mg Morphine Sulfate (Morphine) 4 mg IVP Q4H PRN PRN Reason: Pain, severe (8-10) Ondansetron HCl (Zofran Inj) 4 mg IVP Q6H PRN PRN Reason: Nausea/Vomiting - Labs Labs: 09/29/17 08:18 09/29/17 08:18 PT 11.7 SECONDS (9.7-12.2) 09/27/17 04:16 INR 1.0 09/27/17 04:16 APTT 26 SECONDS (21-34) 09/27/17 04:16 - Constitutional Appears: Well, Non-toxic, No Acute Distress - Head Exam Head Exam: ATRAUMATIC, NORMAL INSPECTION, NORMOCEPHALIC - Eye Exam Eye Exam: EOMI, Normal appearance - ENT Exam ENT Exam: Mucous Membranes Moist - Respiratory Exam Respiratory Exam: NORMAL BREATHING PATTERN. absent: Accessory Muscle Use, Respiratory Distress - Cardiovascular Exam Cardiovascular Exam: RRR. absent: JVD - GI/Abdominal Exam GI & Abdominal Exam: Soft. absent: Distended, Firm, Guarding, Rigid, Rebound Additional comments: mild tenderness to palpation mid abdomen. No Rebound, no guarding. No peritoneal signs - Extremities Exam Extremities Exam: Normal Inspection. absent: Calf Tenderness - Back Exam Back Exam: NORMAL INSPECTION - Neurological Exam Neurological Exam: Alert, Awake, Oriented x3 - Psychiatric Exam Psychiatric exam: Normal Affect, Normal Mood - Skin Skin Exam: Dry, Intact, Normal Color, Warm Assessment and Plan - Assessment and Plan (Free Text) Assessment: 57yo M with pancreatic tail mass. Likely pseudocyst secondary to resolved gallstone pancreatitis. Plan: - Continue current management - To OR Sunday, 10/02 for Cholecystectomy and Jenny-en-Y Cystojejunostomy - Diet as tolerated in the meantime Further recs as per Dr. Juanito Bills PGY1 surgery pager: [phone]
[2017-09-30 08:01] LABS: BASO % 0.4 % (0.0-2.0); EOS # 0.1 K/uL (0.0-0.7); EOS % 1.7 % (0.0-4.0); HEMOGLOBIN 13.8 g/dL (12.0-18.0); LYMPH # 2.1 K/uL (1.0-4.3); LYMPH % 32.5 % (20.0-40.0); MEAN CELL VOLUME 89.1 fL (80.0-94.0); MEAN CORPUSCULAR HEMOGLOBIN 30.6 pg (27.0-31.0); MEAN CORPUSCULAR HGB CONC 34.3 g/dL (33.0-37.0); MONO # 0.5 K/uL (0.0-0.8); MONO % 8.4 % (0.0-10.0); NEUT # 3.7 K/uL (1.8-7.0); RBC 4.52 Mil/uL (4.40-5.90); RED CELL DISTRIBUTION WIDTH 14.2 % (11.5-14.5); WHITE BLOOD COUNT 6.5 K/uL (4.8-10.8)
[2017-09-30 08:33] LABS: ALBUMIN 3.5 g/dL (3.5-5.0); ALT/SGPT 27 U/L (21-72); AST/SGOT 27 U/L (17-59); BLOOD UREA NITROGEN 10 mg/dL (9-20); CALCIUM 8.7 mg/dl (8.6-10.4); GFR AFRICAN-AMERICAN > 60; GFR NON-AFRICAN AMERICAN > 60
--- NOTE | 2017-09-30 08:58 | RAD ---
HISTORY: Preop COMPARISON: Lung bases on CT pancreatic protocol performed 09/28/17. TECHNIQUE: Chest, one view. FINDINGS: LUNGS: Linear dense opacity involving the left mid to lower lung zone may reflect scarring or atelectasis. Mild right basilar atelectasis. Please note that chest x-ray has limited sensitivity for the detection of pulmonary masses. PLEURA: No significant pleural effusion identified. No definite pneumothorax . CARDIOVASCULAR: Heart size appears within normal limits. OSSEOUS STRUCTURES: No acute osseous abnormality identified. VISUALIZED UPPER ABDOMEN: Unremarkable. OTHER FINDINGS: None. IMPRESSION: Linear dense opacity involving the left mid to lower lung zone may reflect scarring or atelectasis.
--- NOTE | 2017-09-30 09:08 | CP.PCM.PN ---
Subjective - Date & Time of Evaluation Date of Evaluation: 09/30/17 Time of Evaluation: 06:50 - Subjective Subjective: Surgery Progress note. Dr. Solomon Pt seen and examined at bedside. No acute events overnight. No abd pain. No N/V/ D. No new complaints. Objective - Vital Signs/Intake and Output Vital Signs (last 24 hours): Temp Pulse Resp BP Pulse Ox 98.1 F 66 20 101/61 97 09/30/17 08:37 09/30/17 08:37 09/30/17 08:37 09/30/17 08:37 09/30/17 08:37 Intake and Output: 09/30/17 09/30/17 06:59 18:59 Intake Total Balance - Medications Medications: Current Medications Belladonna/Phenobarbital () 1 tab PO TID [facility] Last Admin: 09/29/17 17:39 Dose: 1 tab Enoxaparin Sodium (Lovenox) 40 mg SC DAILY [facility] Last Admin: 09/29/17 09:16 Dose: 40 mg Famotidine (Pepcid) 20 mg PO DAILY [facility] Last Admin: 09/29/17 09:16 Dose: 20 mg Morphine Sulfate (Morphine) 4 mg IVP Q4H PRN PRN Reason: Pain, severe (8-10) Ondansetron HCl (Zofran Inj) 4 mg IVP Q6H PRN PRN Reason: Nausea/Vomiting - Labs Labs: 09/30/17 07:52 09/30/17 07:52 PT 11.7 SECONDS (9.7-12.2) 09/27/17 04:16 INR 1.0 09/27/17 04:16 APTT 26 SECONDS (21-34) 09/27/17 04:16 - Constitutional Appears: Non-toxic, No Acute Distress - Head Exam Head Exam: ATRAUMATIC, NORMAL INSPECTION, NORMOCEPHALIC - Eye Exam Eye Exam: EOMI, Normal appearance - ENT Exam ENT Exam: Mucous Membranes Moist - Neck Exam Neck Exam: Full ROM - Respiratory Exam Respiratory Exam: NORMAL BREATHING PATTERN. absent: Accessory Muscle Use, Wheezes, Respiratory Distress - Cardiovascular Exam Cardiovascular Exam: RRR. absent: JVD - GI/Abdominal Exam GI & Abdominal Exam: Soft. absent: Distended, Firm, Guarding, Rigid, Tenderness , Rebound - Extremities Exam Extremities Exam: Normal Inspection. absent: Calf Tenderness - Neurological Exam Neurological Exam: Alert, Awake, Oriented x3 - Psychiatric Exam Psychiatric exam: Normal Affect, Normal Mood - Skin Skin Exam: Dry, Intact, Normal Color, Warm Assessment and Plan - Assessment and Plan (Free Text) Assessment: 57yo M with pancreatic tail mass. Likely pseudocyst secondary to resolved gallstone pancreatitis Plan: - To OR Sunday, 10/02 for Cholecystectomy and Jenny-en-Y Cystojejunostomy - Diet as tolerated in the meantime - Preop pending Further recs as per Dr. Juanito Bills PGY1 surgery pager: [phone]
[2017-09-30] MEDS: Belladonna-Phenobarbital PO SCH ×3 (10:03→17:15)
[2017-09-30] MEDS: Enoxaparin 40 mg Syringe SC SCH (10:03)
--- NOTE | 2017-09-30 12:15 | PN ---
LOCATION: Formerly [facility], bed A. SUBJECTIVE: This is a 57-year-old male seen and examined early in rounds today with a Luxembourger spoken staff. Denied any significant shortness of breath, chest pain, significant nausea, vomiting, or palpitation, but with mild abdominal pain. No reported active bleeding. The entire chart is reviewed including, but not limited to, the most recent lab and radiological results, current and previous medication list, current and previous medical events. Case discussed with staff at length. Latest blood glucose level reported to be 95, and the patient has completely normal cancer markers including alpha-fetoprotein and CEA as well as his hepatis profile reported to be normal with normal CA 19-9. PHYSICAL EXAMINATION: GENERAL: A 57-year-old male appears to be awake, alert, oriented. VITAL SIGNS: Afebrile with pulse of 62, respiratory rate 18 to 20, and blood pressure 110/62. HEENT: Showed mildly pale, dry oral mucous membrane. Nonicteric sclerae. HEART: Positive S1 and S2. LUNGS: Few scattered crepitation, decreased air entry at bases. ABDOMEN: Soft, bowel sounds are present. Slight generalized tenderness. No masses or organomegaly. No rebound tenderness or guarding. RECTAL: The patient refused. EXTREMITIES: Without significant clubbing, cyanosis, or edema. NEUROLOGIC: No reported new neurological deficits, sensory or motor. IMPRESSION: 1. Pancreatic cystic mass lesion, most likely pseudocyst of the pancreas in the phase of the normal CA 19-9. 2. Re-exacerbation of peptic ulcer disease. SUGGESTIONS: 1. Surgical followup. 2. invasive radiology consultation for CAT scan guided aspiration and/or biopsy of the cystic lesion. 3. Further recommendation to follow. Rudi Andrew MD
[2017-10-01 07:16] LABS: PROTHROMBIN TIME 11.1 SECONDS (9.7-12.2)
[2017-10-01 07:21] LABS: BASO % 0.7 % (0.0-2.0); EOS # 0.1 K/uL (0.0-0.7); EOS % 2.4 % (0.0-4.0); HEMOGLOBIN 14.1 g/dL (12.0-18.0); LYMPH # 1.9 K/uL (1.0-4.3); LYMPH % 35.7 % (20.0-40.0); MEAN CELL VOLUME 87.7 fL (80.0-94.0); MEAN CORPUSCULAR HEMOGLOBIN 30.5 pg (27.0-31.0); MEAN CORPUSCULAR HGB CONC 34.8 g/dL (33.0-37.0); MEAN PLATELET VOLUME 8.1 fL (7.2-11.7); MONO # 0.4 K/uL (0.0-0.8); MONO % 7.8 % (0.0-10.0); NEUT # 2.9 K/uL (1.8-7.0); NEUT % 53.4 % (50.0-75.0); NRBC % 0.1 % (0.0-2.0); RBC 4.61 Mil/uL (4.40-5.90); WHITE BLOOD COUNT 5.4 K/uL (4.8-10.8)
[2017-10-01 07:39] LABS: ALB/GLOB RATIO 1.1 (1.0-2.1); ALBUMIN 3.6 g/dL (3.5-5.0); ALT/SGPT 37 U/L (21-72); AST/SGOT 27 U/L (17-59); BLOOD UREA NITROGEN 11 mg/dL (9-20); CALCIUM 8.7 mg/dl (8.6-10.4); GFR AFRICAN-AMERICAN > 60; GFR NON-AFRICAN AMERICAN > 60
--- NOTE | 2017-10-01 09:34 | CP.PCM.PN ---
Subjective - Date & Time of Evaluation Date of Evaluation: 10/01/17 Time of Evaluation: 09:32 - Subjective Subjective: Surgery: Dr. Solomon Pt seen and examined. No acute overnight events. States he feels well and has no complaints at this time. Tolerating diet. Denies N/V, F/C. Objective - Vital Signs/Intake and Output Vital Signs (last 24 hours): Temp Pulse Resp BP Pulse Ox 98.7 F 70 20 104/65 98 10/01/17 07:57 10/01/17 07:57 10/01/17 07:57 10/01/17 07:57 10/01/17 07:57 Intake and Output: 10/01/17 10/01/17 06:59 18:59 Intake Total 350 Balance 350 - Medications Medications: Current Medications Belladonna/Phenobarbital () 1 tab PO TID [facility] Last Admin: 09/30/17 17:15 Dose: 1 tab Enoxaparin Sodium (Lovenox) 40 mg SC DAILY [facility] Last Admin: 09/30/17 10:03 Dose: 40 mg Famotidine (Pepcid) 20 mg PO DAILY [facility] Last Admin: 09/30/17 10:04 Dose: 20 mg Morphine Sulfate (Morphine) 4 mg IVP Q4H PRN PRN Reason: Pain, severe (8-10) Ondansetron HCl (Zofran Inj) 4 mg IVP Q6H PRN PRN Reason: Nausea/Vomiting - Labs Labs: 10/01/17 06:54 10/01/17 06:54 PT 11.1 SECONDS (9.7-12.2) 10/01/17 06:54 INR 1.0 10/01/17 06:54 APTT 28 SECONDS (21-34) 10/01/17 06:54 - Constitutional Appears: Well, No Acute Distress - Head Exam Head Exam: ATRAUMATIC, NORMOCEPHALIC - ENT Exam ENT Exam: Mucous Membranes Moist - Respiratory Exam Respiratory Exam: NORMAL BREATHING PATTERN - Cardiovascular Exam Cardiovascular Exam: RRR - GI/Abdominal Exam GI & Abdominal Exam: Soft. absent: Distended, Tenderness - Neurological Exam Neurological Exam: Alert, Awake, Oriented x3 - Skin Skin Exam: Dry, Warm Assessment and Plan - Assessment and Plan (Free Text) Assessment: 57M with pancreatic tail pseudocyst Plan: - OR tomorrow for cholecystectomy and cyst jejunostomy - Keep NPO past midnight - d/w Dr. Solomon who agrees with above Alice, PGY-3 Surgery
[2017-10-01] MEDS: Enoxaparin 40 mg Syringe SC SCH (09:49)
[2017-10-01] MEDS: Belladonna-Phenobarbital PO SCH ×3 (09:49→17:58)
--- NOTE | 2017-10-01 09:54 | CP.PCM.PN ---
Subjective - Date & Time of Evaluation Date of Evaluation: 10/01/17 Time of Evaluation: 09:53 - Subjective Subjective: Medicine Progress Note for Dr. Connell's Service: Patient seen and examined. Patient denies abdominal pain, nausea, vomiting. Patient is tolerating diet well and has no complaints at this time. Surgery planned for tomorrow morning with Dr. Solomon. Objective - Vital Signs/Intake and Output Vital Signs (last 24 hours): Temp Pulse Resp BP Pulse Ox 98.7 F 70 20 104/65 98 10/01/17 07:57 10/01/17 07:57 10/01/17 07:57 10/01/17 07:57 10/01/17 07:57 Intake and Output: 10/01/17 10/01/17 06:59 18:59 Intake Total 350 Balance 350 - Medications Medications: Current Medications Belladonna/Phenobarbital () 1 tab PO TID [facility] Last Admin: 10/01/17 09:49 Dose: 1 tab Enoxaparin Sodium (Lovenox) 40 mg SC DAILY [facility] Last Admin: 10/01/17 09:49 Dose: Not Given Famotidine (Pepcid) 20 mg PO DAILY [facility] Last Admin: 10/01/17 09:49 Dose: 20 mg Morphine Sulfate (Morphine) 4 mg IVP Q4H PRN PRN Reason: Pain, severe (8-10) Ondansetron HCl (Zofran Inj) 4 mg IVP Q6H PRN PRN Reason: Nausea/Vomiting - Labs Labs: 10/01/17 06:54 10/01/17 06:54 PT 11.1 SECONDS (9.7-12.2) 10/01/17 06:54 INR 1.0 10/01/17 06:54 APTT 28 SECONDS (21-34) 10/01/17 06:54 - Constitutional Appears: Non-toxic, No Acute Distress - Head Exam Head Exam: ATRAUMATIC, NORMOCEPHALIC - Eye Exam Eye Exam: EOMI - ENT Exam ENT Exam: Mucous Membranes Moist - Respiratory Exam Respiratory Exam: Clear to Ausculation Bilateral - Cardiovascular Exam Cardiovascular Exam: REGULAR RHYTHM, +S1, +S2 - GI/Abdominal Exam GI & Abdominal Exam: Soft, Normal Bowel Sounds. absent: Distended, Firm, Guarding, Tenderness - Extremities Exam Extremities Exam: Normal Inspection. absent: Pedal Edema - Neurological Exam Neurological Exam: Alert, Awake - Psychiatric Exam Psychiatric exam: Normal Affect - Skin Skin Exam: Warm Assessment and Plan - Assessment and Plan (Free Text) Assessment: 57yo M admitted to the hospital for abdominal pain and vomiting, found to have pancreatic cyst vs neoplasm Pancreatic Cyst vs Neoplasm -OR tomorrow for cholecystectomy and cyst jejunostomy -CT Abdomen shows cyst vs neoplasm; please refer to full report -MRCP confirms mass in the pancreas; neoplasm vs cyst; please refer to full report -Surgery; Dr. Solomon on board; thank you for your help; appreciate recs -CEA and CA-19-9 markers AFP all WNL hepatitis panel neg, TSH .82, HIV neg, Lipid Panel WNL as well as HBa1C shows IGT -CMP WNL no liver abnormalities or elevated bili IGT diet and lifestyle modifications for patient Hba1c 6.0 recommend f/u in 6 months Proph -Regular diet unless procedures are planned -pepcid -lovenox- hold for surgery All medical management as per Dr. Connell
--- NOTE | 2017-10-02 07:04 | PN ---
DATE: LOCATION: [facility], bed B. This 57-year-old male seen and examined in rounds without significant clinical changes or reported active bleeding. No chest pain or palpitations, significant shortness of breath with mild abdominal discomfort. No nausea or vomiting. The entire chart is reviewed including but not limited to, the most recent lab and radiology study results, current and the previous medication list, current and the previous medical events, all the reported emergency management consultant notes seen. Today's labs showed normal CBC and normal . Rudi Andrew MD
[2017-10-02] MEDS ORDERED: ceFAZolin IV 1 gm in Dextrose 1 GM/50 ML BAG IVPB ONE ×2 (08:13→08:59)
[2017-10-02] MEDS ORDERED: Bupivacaine HCl 0.5% PF (10 ml) Inj ONE ×2 (08:13→08:59)
[2017-10-02] MEDS ORDERED: Midazolam 2 MG/2 ML VIAL ONE (08:29)
[2017-10-02] MEDS ORDERED: Propofol 10 mg/ml Inj (20 ML) ONE (08:29)
[2017-10-02] MEDS ORDERED: Succinylcholine Chloride 20 mg/ml Syr (5 ml) IV ONE (08:31)
[2017-10-02] MEDS: Belladonna-Phenobarbital PO SCH ×3 (10:00→17:45)
[2017-10-02] MEDS ORDERED: ceFAZolin IV 1 gm in Dextrose 2 GM/100 ML BAG IVPB ONE (12:55)
--- NOTE | 2017-10-02 12:58 | PN ---
DATE: LOCATION: [facility], bed B. SUBJECTIVE: This is a 57-year-old male seen and examined in rounds with Trinidadian-spoken staff early this morning, without significant clinical changes or reported bleeding. He is scheduled for OR early today. No chest pain or palpitation. The patient for potential cholecystectomy and drainage of the pancreatic cystic lesion. PHYSICAL EXAMINATION GENERAL: A 57-year-old male, awake, alert, and oriented. VITAL SIGNS: Afebrile, with pulse of 72, respiratory rate of 20 to 22, blood pressure 116/66. HEENT: Showed pale, dry oral mucous membrane. Nonicteric sclerae. LUNGS: Few scattered crepitation. Decreased air entry at bases. HEART: Positive S1 and S2. ABDOMEN: Soft, bowel sounds are present. EXTREMITIES: Without significant clubbing, cyanosis, or edema. NEUROLOGIC: No reported new neurological deficits, sensory or motor. LABORATORY DATA: Lab results are still pending. IMPRESSION: 1. Pancreatic cystic lesion, pancreatic cyst versus mass lesion. 2. Peptic ulcer disease. SUGGESTIONS: 1. Continue current management. 2. Will follow up with you post surgery. 3. Further recommendations to follow. Rudi Andrew MD
[2017-10-02] MEDS: HYDROmorphone 0.5 mg/0.5 ml ISec IVP PRN ×6 (14:01→22:40)
--- NOTE | 2017-10-02 14:05 | PCM.SURG1 ---
Surgeon's Initial Post Op Note - Surgeon's Notes Surgeon: Dr Solomon Environmental Compliance Manager: Dr Petty, Dr Park PGY3 Type of Anesthesia: General Endo Pre-Operative Diagnosis: pancreatic cyst Operative Findings: see report Post-Operative Diagnosis: as above Operation Performed: robotic cholecystectomy. brittany-en-Y pancreatic cystojejunostomy Specimen/Specimens Removed: gallbladder. pancreatic cyst wall. pancreatic cyst fluid Estimated Blood Loss: EBL {In ML}: 350 Blood Products Given: N/A Drains Used: Fernie (x 2 ) Post-Op Condition: Good Date of Surgery/Procedure: 10/02/17 Time of Surgery/Procedure: 14:05
--- NOTE | 2017-10-02 15:37 | CP.PCM.PN ---
Subjective - Date & Time of Evaluation Date of Evaluation: 10/02/17 Time of Evaluation: 15:34 - Subjective Subjective: Medicine progress note for Dr. Connell's service Patient seen and examined in PACU s/p robotic cholecystectomy with brittany-en-Y pancreatic cystojejunostomy. Patient sleeping, resting comfortably. Patient to be returned to his bed [facility]. Objective - Vital Signs/Intake and Output Vital Signs (last 24 hours): Temp Pulse Resp BP Pulse Ox 97.9 F 69 10 L 118/65 97 10/02/17 13:55 10/02/17 15:00 10/02/17 15:00 10/02/17 15:00 10/02/17 15:00 Intake and Output: 10/02/17 10/02/17 06:59 18:59 Intake Total 240 2700 Output Total 250 Balance 240 2450 - Medications Medications: Current Medications Belladonna/Phenobarbital () 1 tab PO TID [facility] Last Admin: 10/02/17 13:35 Dose: Not Given Enoxaparin Sodium (Lovenox) 40 mg SC DAILY [facility] Last Admin: 10/01/17 09:49 Dose: Not Given Famotidine (Pepcid) 20 mg PO DAILY [facility] Last Admin: 10/02/17 10:00 Dose: Not Given Hydromorphone HCl (Dilaudid) 0.5 mg IVP Q5M PRN PRN Reason: Pain, severe (8-10) Stop: 10/02/17 15:58 Last Admin: 10/02/17 14:40 Dose: 0.5 mg Hydromorphone HCl (Dilaudid) 0.5 mg IVP Q3H PRN PRN Reason: Pain, moderate (4-7) Lactated Ringer's (Lactated Ringer's) 1,000 mls @ 100 mls/hr IV .Q10H [facility] Ondansetron HCl (Zofran Inj) 4 mg IVP Q6H PRN PRN Reason: Nausea/Vomiting Ondansetron HCl (Zofran Inj) 4 mg IVP ONCE PRN PRN Reason: Nausea/Vomiting Stop: 10/02/17 15:58 - Labs Labs: 10/01/17 06:54 10/01/17 06:54 PT 11.1 SECONDS (9.7-12.2) 10/01/17 06:54 INR 1.0 10/01/17 06:54 APTT 28 SECONDS (21-34) 10/01/17 06:54 - Constitutional Appears: No Acute Distress, Other (sedated) - Head Exam Head Exam: ATRAUMATIC - ENT Exam ENT Exam: Mucous Membranes Moist Additional comments: NGT in place - Respiratory Exam Respiratory Exam: Clear to Ausculation Bilateral, NORMAL BREATHING PATTERN - Cardiovascular Exam Cardiovascular Exam: +S1, +S2 - GI/Abdominal Exam GI & Abdominal Exam: Soft Additional comments: two STEVEN drains with minimal serosanguinous output multiple small abdominal incisions with clean and dry dressings - Exam Additional comments: kenney catheter draining clear light yellow urine - Extremities Exam Extremities Exam: Normal Inspection - Skin Skin Exam: Warm Assessment and Plan - Assessment and Plan (Free Text) Assessment: 57yo M admitted to the hospital for abdominal pain and vomiting, 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 Solomon pain control with dilaudid 0.5mg IV q3prn as per surgical team continue LR @ 100cc/h NGT placed by surgical team, set to low intermittent suction, 20cc serosanguinous output to STEVEN drains, kenney draining clear yellow urine -CT Abdomen shows cyst vs neoplasm; please refer to full report -MRCP confirms mass in the pancreas; neoplasm vs cyst; please refer to full report -CEA and CA-19-9 markers AFP all WNL -hepatitis panel neg, TSH .82, HIV neg, Lipid Panel WNL as well as HBa1C shows IGT -CMP WNL no liver abnormalities or elevated bili IGT diet and lifestyle modifications for patient Hba1c 6.0 recommend f/u in 6 months Prophylactic measure -pepcid -lovenox- held for surgery -encourage incentive spirometer All medical management as per Dr. Connell
[2017-10-02] MEDS ORDERED: Lactated Ringer's 1,000 ML IV ONE (16:00)
[2017-10-02 16:14] LABS: LYMPH # 0.5 K/uL (1.0-4.3); LYMPH % 5.6 % (20.0-40.0); MEAN CORPUSCULAR HEMOGLOBIN 29.5 pg (27.0-31.0); MEAN CORPUSCULAR HGB CONC 32.4 g/dL (33.0-37.0); MEAN PLATELET VOLUME 7.5 fL (7.2-11.7); MONO # 0.2 K/uL (0.0-0.8); MONO % 2.2 % (0.0-10.0); NEUT # 8.4 K/uL (1.8-7.0); NEUT % 92.2 % (50.0-75.0); PLATELET COUNT 232 K/uL (130-400); RBC 4.42 Mil/uL (4.40-5.90); RED CELL DISTRIBUTION WIDTH 13.7 % (11.5-14.5)
[2017-10-02 16:17] LABS: MEAN CELL VOLUME 91.1 fL (80.0-94.0); WHITE BLOOD COUNT 9.1 K/uL (4.8-10.8)
[2017-10-02 16:27] LABS: ALBUMIN 3.2 g/dL (3.5-5.0); ALT/SGPT 69 U/L (21-72); AST/SGOT 65 U/L (17-59); BLOOD UREA NITROGEN 12 mg/dL (9-20); CALCIUM 7.8 mg/dl (8.6-10.4); GFR AFRICAN-AMERICAN > 60; GFR NON-AFRICAN AMERICAN > 60
[2017-10-02] MEDS: Lactated Ringer's 1,000 ML IV SCH (16:40)
[2017-10-02 16:46] LABS: LYMPHOCYTE 11 % (20-40); MONOCYTE 2 % (0-10); NEUTROPHIL 87 % (50-75); PLATELET ESTIMATE NORMAL (NORMAL); TOTAL CELLS COUNTED 100
[2017-10-03] MEDS: Lactated Ringer's 1,000 ML IV SCH ×4 (00:15→20:15)
[2017-10-03] MEDS: HYDROmorphone 0.5 mg/0.5 ml ISec IVP PRN ×3 (03:34→17:29)
[2017-10-03 06:58] LABS: BASO % 0.2 % (0.0-2.0); EOS % 0.1 % (0.0-4.0); HEMOGLOBIN 12.6 g/dL (12.0-18.0); LYMPH # 2.2 K/uL (1.0-4.3); LYMPH % 20.1 % (20.0-40.0); MEAN CELL VOLUME 88.5 fL (80.0-94.0); MEAN CORPUSCULAR HEMOGLOBIN 29.9 pg (27.0-31.0); MEAN CORPUSCULAR HGB CONC 33.8 g/dL (33.0-37.0); MEAN PLATELET VOLUME 7.8 fL (7.2-11.7); MONO # 0.9 K/uL (0.0-0.8); MONO % 8.2 % (0.0-10.0); NEUT # 7.9 K/uL (1.8-7.0); NEUT % 71.4 % (50.0-75.0); RBC 4.2 Mil/uL (4.40-5.90); RED CELL DISTRIBUTION WIDTH 13.6 % (11.5-14.5); WHITE BLOOD COUNT 11.1 K/uL (4.8-10.8)
[2017-10-03 07:09] LABS: ALT/SGPT 74 U/L (21-72); AST/SGOT 66 U/L (17-59); BLOOD UREA NITROGEN 10 mg/dL (9-20); GFR AFRICAN-AMERICAN > 60; GFR NON-AFRICAN AMERICAN > 60
--- NOTE | 2017-10-03 07:19 | CP.PCM.PN ---
Subjective - Date & Time of Evaluation Date of Evaluation: 10/03/17 Time of Evaluation: 07:18 - Subjective Subjective: PGY-[address] Connell's service Patient seen and examined at bedside. POD#1 s/p robotic cholecystectomy with brittany-en-Y pancreatic cystojejunostomy. Nursing reports kenney was removed this morning. Pt states pain well controlled on current regimen. Pt states he is ready to try liquid diet. Objective - Vital Signs/Intake and Output Vital Signs (last 24 hours): Temp Pulse Resp BP Pulse Ox 98.2 F 70 20 105/62 97 10/03/17 00:00 10/03/17 03:30 10/03/17 00:00 10/03/17 03:30 10/03/17 00:00 Intake and Output: 10/03/17 10/03/17 06:59 18:59 Intake Total 1800 Output Total 1010 Balance 790 - Medications Medications: Current Medications Belladonna/Phenobarbital () 1 tab PO TID [facility] Last Admin: 10/02/17 17:45 Dose: Not Given Enoxaparin Sodium (Lovenox) 40 mg SC DAILY [facility] Last Admin: 10/01/17 09:49 Dose: Not Given Famotidine (Pepcid) 20 mg PO DAILY [facility] Last Admin: 10/02/17 10:00 Dose: Not Given Hydromorphone HCl (Dilaudid) 0.5 mg IVP Q3H PRN PRN Reason: Pain, moderate (4-7) Last Admin: 10/03/17 03:34 Dose: 0.5 mg Lactated Ringer's (Lactated Ringer's) 1,000 mls @ 100 mls/hr IV .Q10H [facility] Last Admin: 10/03/17 00:15 Dose: Not Given Ondansetron HCl (Zofran Inj) 4 mg IVP Q6H PRN PRN Reason: Nausea/Vomiting - Labs Labs: 10/03/17 06:43 10/03/17 06:43 PT 11.1 SECONDS (9.7-12.2) 10/01/17 06:54 INR 1.0 10/01/17 06:54 APTT 28 SECONDS (21-34) 10/01/17 06:54 - Additional Findings Additional findings: - Constitutional Appears: No Acute Distress, Lying comfortably in bed - Head Exam Head Exam: ATRAUMATIC - ENT Exam ENT Exam: Mucous Membranes Moist Additional comments: - Respiratory Exam Respiratory Exam: Clear to Ausculation Bilateral, NORMAL BREATHING PATTERN - Cardiovascular Exam Cardiovascular Exam: +S1, +S2 - GI/Abdominal Exam GI & Abdominal Exam: Soft Additional comments: Mild tenderness to palpation at surgical site Non-distended, non-tender. Incisions clean, dry and intact. Fernie outputs: Left-50cc/24hrs serosang. 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 Solomon pain control with dilaudid 0.5mg IV q3prn as per surgical team continue LR @ 100cc/h NGT removed CLD started Fernie Drainage: Left-50cc/24hrs serosang. Right- 130cc/24hrs serosang -CT Abdomen shows cyst vs neoplasm; please refer to full report -MRCP confirms mass in the pancreas; neoplasm vs cyst; please refer to full report -CEA and CA-19-9 markers AFP all WNL -hepatitis panel neg, TSH .82, HIV neg, Lipid Panel WNL as well as HBa1C shows IGT -CMP WNL no liver abnormalities or elevated bili IGT diet and lifestyle modifications for patient Hba1c 6.0 recommend f/u in 6 months Prophylactic measure -pepcid -lovenox 40mg SC daily -encourage incentive spirometer All medical management as per Dr. Connell
[2017-10-03] MEDS: Enoxaparin 40 mg Syringe SC SCH (10:23)
[2017-10-03] MEDS: Belladonna-Phenobarbital PO SCH ×3 (11:00→17:28)
--- NOTE | 2017-10-03 13:16 | PN ---
DATE: LOCATION: [facility], bed B. SUBJECTIVE: This is a 57 -year-old male seen and examined in rounds post surgery without significant clinical changes or reported active bleeding due to his pancreatic cystic lesion. Official report of the surgery still pending. PHYSICAL EXAMINATION GENERAL: Physical examination did not reveal any significant clinical changes, with status post robotic cholecystectomy and Jenny-en-Y surgery. The patient had pancreatic cystojejunostomy. Most recent lab results today showed leukocytosis of 11.1, with hemoglobin and hematocrit, low creatinine of 0.7, low calcium 8.0, with AST 66, ALT 74, with low albumin 3.0. PHYSICAL EXAMINATION; VITAL SIGNS: The patient is afebrile, with pulse of 72, respiratory rate 20 to 22, and blood pressure 110/60. HEENT: Showed mildly pale, dry oral mucous membrane. Nonicteric sclerae. LUNGS: Few scattered crepitation, decreased air entry at bases. HEART: Positive S1 and S2. ABDOMEN: Covered with clean dressing. Bowel sounds are negative with STEVEN drainage of 60 mL at the left side and intact. EXTREMITIES: Without significant clubbing, cyanosis, or edema. NEUROLOGIC: No reported new neurological deficits, sensory or motor. IMPRESSION: 1. Status post cholecystostomy with Jenny-en-Y procedure. 2. Pancreatic cystic lesion. SUGGESTIONS: 1. Continue current management. 2. Repeat blood culture. 3. Peripheral hyperalimentation. Rudi Andrew MD
--- NOTE | 2017-10-03 15:34 | CP.PCM.PN ---
Subjective - Date & Time of Evaluation Date of Evaluation: 10/03/17 Time of Evaluation: 10:20 - Subjective Subjective: Surgery Progress note. Dr. Solomon Pt seen and examined at bedside. No acute events overnight. No N/V/D. Requesting to advance diet. No new complaints. Estrada removed this morning. Ambulating in the hallway. Urinating without any complaints. Pain well tolerated. Objective - Vital Signs/Intake and Output Vital Signs (last 24 hours): Temp Pulse Resp BP Pulse Ox 98.7 F 77 20 109/64 97 10/03/17 10:21 10/03/17 10:21 10/03/17 10:21 10/03/17 10:21 10/03/17 10:21 Intake and Output: 10/03/17 10/03/17 06:59 18:59 Intake Total 1800 Output Total 1010 Balance 790 - Medications Medications: Current Medications Belladonna/Phenobarbital () 1 tab PO TID [facility] Last Admin: 10/03/17 14:42 Dose: 1 tab Enoxaparin Sodium (Lovenox) 40 mg SC DAILY [facility] Last Admin: 10/03/17 10:23 Dose: 40 mg Famotidine (Pepcid) 20 mg PO DAILY [facility] Last Admin: 10/03/17 10:23 Dose: 20 mg Hydromorphone HCl (Dilaudid) 0.5 mg IVP Q3H PRN PRN Reason: Pain, moderate (4-7) Last Admin: 10/03/17 10:23 Dose: 0.5 mg Lactated Ringer's (Lactated Ringer's) 1,000 mls @ 100 mls/hr IV .Q10H [facility] Last Admin: 10/03/17 14:43 Dose: Not Given Ketorolac Tromethamine (Toradol) 15 mg IVP Q6 [facility] Stop: 10/05/17 00:01 Ondansetron HCl (Zofran Inj) 4 mg IVP Q6H PRN PRN Reason: Nausea/Vomiting - Labs Labs: 10/03/17 06:43 10/03/17 06:43 PT 11.1 SECONDS (9.7-12.2) 10/01/17 06:54 INR 1.0 10/01/17 06:54 APTT 28 SECONDS (21-34) 10/01/17 06:54 - Constitutional Appears: Well, Non-toxic - Head Exam Head Exam: ATRAUMATIC, NORMAL INSPECTION, NORMOCEPHALIC - Eye Exam Eye Exam: EOMI, Normal appearance. absent: Scleral icterus - ENT Exam ENT Exam: Mucous Membranes Moist - Respiratory Exam Respiratory Exam: NORMAL BREATHING PATTERN. absent: Accessory Muscle Use, Respiratory Distress - Cardiovascular Exam Cardiovascular Exam: absent: JVD - GI/Abdominal Exam GI & Abdominal Exam: Soft. absent: Distended, Firm, Guarding, Rigid, Rebound Additional comments: Mild tenderness to palpation, non-distended, non-tender. Incisions clean, dry and intact. Fernie outputs: Left-50cc/24hrs serosang. Right- 130cc/24hrs serosang. - Extremities Exam Extremities Exam: Normal Inspection. absent: Calf Tenderness - Neurological Exam Neurological Exam: Alert, Awake, Oriented x3 - Psychiatric Exam Psychiatric exam: Normal Affect, Normal Mood - Skin Skin Exam: Dry, Intact, Normal Color, Warm Assessment and Plan - Assessment and Plan (Free Text) Assessment: 57yo M s/p Robotic Cholecystectomy and Cystojejunostomy. POD1 Plan: - Okay for CLD. Advance diet as tolerated. - Pain management - f/u AM labs Further recs as per Dr. Juanito Bills PGY1 surgery pager: [phone]
[2017-10-04] MEDS: HYDROmorphone 0.5 mg/0.5 ml ISec IVP PRN (02:16)
[2017-10-04] MEDS: Lactated Ringer's 1,000 ML IV SCH ×2 (02:18→06:20)
[2017-10-04 07:23] LABS: BASO % 0.2 % (0.0-2.0); EOS % 0.2 % (0.0-4.0); HEMOGLOBIN 13.8 g/dL (12.0-18.0); LYMPH # 1.1 K/uL (1.0-4.3); LYMPH % 8.6 % (20.0-40.0); MEAN CELL VOLUME 87.9 fL (80.0-94.0); MEAN CORPUSCULAR HGB CONC 34.2 g/dL (33.0-37.0); MEAN PLATELET VOLUME 7.7 fL (7.2-11.7); MONO % 8.1 % (0.0-10.0); NEUT # 10.2 K/uL (1.8-7.0); NEUT % 82.9 % (50.0-75.0); PLATELET COUNT 221 K/uL (130-400); RED CELL DISTRIBUTION WIDTH 13.9 % (11.5-14.5); WHITE BLOOD COUNT 12.3 K/uL (4.8-10.8)
--- NOTE | 2017-10-04 08:01 | CP.PCM.PN ---
Subjective - Date & Time of Evaluation Date of Evaluation: 10/04/17 Time of Evaluation: 07:59 - Subjective Subjective: General Surgery: Dr Solomon Pt S&E. JEAN CARLOS. Tolerating liquids. Passing flatus. Has been OOB and ambulating. Using incentive spirometer. Pain present but controlled. denies n/v, f/c, sob or chest pain. Objective - Vital Signs/Intake and Output Vital Signs (last 24 hours): Temp Pulse Resp BP Pulse Ox 98.9 F 82 20 105/62 94 L 10/04/17 00:00 10/04/17 00:00 10/04/17 00:00 10/04/17 00:00 10/04/17 00:00 Intake and Output: 10/04/17 10/04/17 06:59 18:59 Intake Total 340 Output Total 855 Balance -515 - Medications Medications: Current Medications Belladonna/Phenobarbital () 1 tab PO TID [facility] Last Admin: 10/03/17 17:28 Dose: 1 tab Enoxaparin Sodium (Lovenox) 40 mg SC DAILY [facility] Last Admin: 10/03/17 10:23 Dose: 40 mg Famotidine (Pepcid) 20 mg PO DAILY [facility] Last Admin: 10/03/17 10:23 Dose: 20 mg Hydromorphone HCl (Dilaudid) 0.5 mg IVP Q3H PRN PRN Reason: Pain, moderate (4-7) Last Admin: 10/04/17 02:16 Dose: 0.5 mg Lactated Ringer's (Lactated Ringer's) 1,000 mls @ 100 mls/hr IV .Q10H [facility] Last Admin: 10/04/17 06:20 Dose: Not Given Ketorolac Tromethamine (Toradol) 15 mg IVP Q6 [facility] Stop: 10/05/17 00:01 Last Admin: 10/04/17 05:10 Dose: 15 mg Ondansetron HCl (Zofran Inj) 4 mg IVP Q6H PRN PRN Reason: Nausea/Vomiting - Labs Labs: 10/04/17 07:10 10/03/17 06:43 PT 11.1 SECONDS (9.7-12.2) 10/01/17 06:54 INR 1.0 10/01/17 06:54 APTT 28 SECONDS (21-34) 10/01/17 06:54 - Constitutional Appears: Non-toxic, No Acute Distress - Eye Exam Eye Exam: Normal appearance - ENT Exam ENT Exam: Mucous Membranes Moist - Respiratory Exam Respiratory Exam: absent: Accessory Muscle Use, Respiratory Distress - Cardiovascular Exam Cardiovascular Exam: REGULAR RHYTHM. absent: Tachycardia - GI/Abdominal Exam GI & Abdominal Exam: Soft, Tenderness (post-op and appropriate). absent: Distended, Firm, Guarding Additional comments: incisions c/d/i - Extremities Exam Extremities Exam: absent: Pedal Edema - Neurological Exam Neurological Exam: Alert, Awake, Oriented x3 - Psychiatric Exam Psychiatric exam: Normal Affect, Normal Mood - Skin Skin Exam: Normal Color, Warm Assessment and Plan - Assessment and Plan (Free Text) Assessment: 57M POD#2 s/p robotic cholecystectomy w/ pancreatic cystojejunostomy Plan: cont ambulation and IS use will adv diet monitor for BM switch to PO pain controll will d/w Dr Juanito Park, PGY3
[2017-10-04] MEDS ORDERED: Oxycodone/Acetaminophen 5/325 mg Tab PO PRN (08:03)
[2017-10-04 08:11] LABS: ALBUMIN 3.3 g/dL (3.5-5.0); ALT/SGPT 67 U/L (21-72); AST/SGOT 43 U/L (17-59); BLOOD UREA NITROGEN 9 mg/dL (9-20); CALCIUM 8.4 mg/dl (8.6-10.4); GFR AFRICAN-AMERICAN > 60; GFR NON-AFRICAN AMERICAN > 60
[2017-10-04] MEDS: Belladonna-Phenobarbital PO SCH ×3 (09:55→18:20)
[2017-10-04] MEDS: Enoxaparin 40 mg Syringe SC SCH (09:56)
[2017-10-04 10:00] LABS: BASOPHIL 1 % (0-2); LYMPHOCYTE 9 % (20-40); MONOCYTE 6 % (0-10); NEUTROPHIL 83 % (50-75); OVALOCYTES SLIGHT; PLATELET ESTIMATE NORMAL (NORMAL); REACTIVE LYMPHOCYTES 1 % (0-0); TOTAL CELLS COUNTED 100
--- NOTE | 2017-10-04 13:30 | CP.PCM.PN ---
Subjective - Date & Time of Evaluation Date of Evaluation: 10/04/17 Time of Evaluation: 09:40 - Subjective Subjective: Medicine progress note for Dr. Connell's service Patient seen and examined. Patient reports abdominal discomfort. He also has complaint of drains being uncomfortable and heavy. Patient ate cereal this morning but did not eat the remainder of his breakfast. Patient denies bowel movement. Objective - Vital Signs/Intake and Output Vital Signs (last 24 hours): Temp Pulse Resp BP Pulse Ox 98.3 F 82 20 112/70 98 10/04/17 10:55 10/04/17 10:55 10/04/17 10:55 10/04/17 10:55 10/04/17 10:55 Intake and Output: 10/04/17 10/04/17 06:59 18:59 Intake Total 340 1000 Output Total 855 590 Balance -515 410 - Medications Medications: Current Medications Belladonna/Phenobarbital () 1 tab PO TID [facility] Last Admin: 10/04/17 09:55 Dose: 1 tab Enoxaparin Sodium (Lovenox) 40 mg SC DAILY [facility] Last Admin: 10/04/17 09:56 Dose: 40 mg Famotidine (Pepcid) 20 mg PO DAILY [facility] Last Admin: 10/04/17 09:55 Dose: 20 mg Ketorolac Tromethamine (Toradol) 15 mg IVP Q6 [facility] Stop: 10/05/17 00:01 Last Admin: 10/04/17 11:52 Dose: 15 mg Ondansetron HCl (Zofran Inj) 4 mg IVP Q6H PRN PRN Reason: Nausea/Vomiting Oxycodone/Acetaminophen (Percocet 5/325 Mg Tab) 1 tab PO Q4H PRN PRN Reason: Pain, Mild (1-3) Stop: 10/07/17 08:04 Last Admin: 10/04/17 09:55 Dose: 1 tab - Labs Labs: 10/04/17 07:10 10/04/17 07:10 PT 11.1 SECONDS (9.7-12.2) 10/01/17 06:54 INR 1.0 10/01/17 06:54 APTT 28 SECONDS (21-34) 10/01/17 06:54 - Constitutional Appears: No Acute Distress - Head Exam Head Exam: ATRAUMATIC, NORMOCEPHALIC - Eye Exam Eye Exam: EOMI - ENT Exam ENT Exam: Mucous Membranes Moist - Respiratory Exam Respiratory Exam: Decreased Breath Sounds (decreased inspiratory effort), NORMAL BREATHING PATTERN - Cardiovascular Exam Cardiovascular Exam: +S1, +S2 - GI/Abdominal Exam GI & Abdominal Exam: Soft Additional comments: right drain: approximately 100cc serosanguinous output; left drain: approximately 75cc serosanguinous output - Extremities Exam Extremities Exam: Normal Inspection - Neurological Exam Neurological Exam: Alert, Awake - Psychiatric Exam Psychiatric exam: Normal Affect - Skin Skin Exam: Dry, Warm Assessment and Plan - Assessment and Plan (Free Text) Assessment: 57yo M admitted to the hospital for abdominal pain and vomiting, 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 Solomon pain control with percocet 1 tab q4h prn as per surgical team Patient noted to have temperature 100.3 yesterday afternoon at 16:29, however repeat temperatures normal. Will continue to monitor leukocytosis OR body fluid culture no growth for 2 days diet advanced to regular diet Fernie Drainage: Left-75cc/3hrs serosang. Right- 100cc/3hrs serosang as per nursing this morning drain was emptied around 7AM and then around 10AM volumes listed were noted in drains -CT Abdomen shows cyst vs neoplasm; please refer to full report -MRCP confirms mass in the pancreas; neoplasm vs cyst; please refer to full report -CEA and CA-19-9 markers AFP all WNL -hepatitis panel neg, TSH .82, HIV neg, Lipid Panel WNL as well as HBa1C shows IGT -CMP WNL no liver abnormalities or elevated bili IGT diet and lifestyle modifications for patient Hba1c 6.0 recommend f/u in 6 months Prophylactic measure -pepcid -lovenox 40mg SC daily -encourage incentive spirometer All medical management as per Dr. Connell
--- NOTE | 2017-10-05 07:27 | CP.PCM.PN ---
Subjective - Date & Time of Evaluation Date of Evaluation: 10/05/17 Time of Evaluation: 07:24 - Subjective Subjective: PGY-[address] Conenll's Service: Patient seen and examined. Nursing reports pt febrile overnight. Pt denies chills, SOB, chest pain, N/v. He states he has been tolerating his regular diet without difficulty. Pt reports solid BM last night. Objective - Vital Signs/Intake and Output Vital Signs (last 24 hours): Temp Pulse Resp BP Pulse Ox 99.9 F H 104 H 20 110/67 93 L 10/05/17 00:28 10/04/17 23:50 10/04/17 23:50 10/04/17 23:50 10/04/17 23:50 Intake and Output: 10/05/17 10/05/17 06:59 18:59 Intake Total 550 Output Total 1185 Balance -635 - Medications Medications: Current Medications Belladonna/Phenobarbital () 1 tab PO TID [facility] Last Admin: 10/04/17 18:20 Dose: 1 tab Enoxaparin Sodium (Lovenox) 40 mg SC DAILY [facility] Last Admin: 10/04/17 09:56 Dose: 40 mg Famotidine (Pepcid) 20 mg PO DAILY [facility] Last Admin: 10/04/17 09:55 Dose: 20 mg Ondansetron HCl (Zofran Inj) 4 mg IVP Q6H PRN PRN Reason: Nausea/Vomiting Oxycodone/Acetaminophen (Percocet 5/325 Mg Tab) 1 tab PO Q4H PRN PRN Reason: Pain, Mild (1-3) Stop: 10/07/17 08:04 Last Admin: 10/04/17 09:55 Dose: 1 tab - Labs Labs: 10/04/17 07:10 10/04/17 07:10 PT 11.1 SECONDS (9.7-12.2) 10/01/17 06:54 INR 1.0 10/01/17 06:54 APTT 28 SECONDS (21-34) 10/01/17 06:54 - Additional Findings Additional findings: - Constitutional Appears: No Acute Distress - Head Exam Head Exam: ATRAUMATIC, NORMOCEPHALIC - Eye Exam Eye Exam: EOMI - ENT Exam ENT Exam: Mucous Membranes Moist - Respiratory Exam Respiratory Exam: Decreased Breath Sounds (decreased inspiratory effort), NORMAL BREATHING PATTERN - Cardiovascular Exam Cardiovascular Exam: +S1, +S2 - GI/Abdominal Exam GI & Abdominal Exam: Soft Additional comments: right drain: approximately 315cc serosanguinous output; left drain: approximately 550cc serosanguinous output - Extremities Exam Extremities Exam: Normal Inspection - Neurological Exam Neurological Exam: Alert, Awake - Psychiatric Exam Psychiatric exam: Normal Affect - Skin Skin Exam: Dry, Warm Assessment and Plan - Assessment and Plan (Free Text) Plan: 57yo M admitted to the hospital for abdominal pain and vomiting, 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 Solomon Surgical team recommendations: - Sending amylase from sharon drains to eval for panc leak - Octreotide 300ug Q8H prophylactically (start 10/05/17) OR body fluid culture no growth for 2 days Percocet 1 tab q4h prn as per surgical team Work-up: -CT Abdomen shows cyst vs neoplasm; please refer to full report -MRCP confirms mass in the pancreas; neoplasm vs cyst; please refer to full report -CEA and CA-19-9 markers AFP all WNL -hepatitis panel neg, TSH .82, HIV neg, Lipid Panel WNL as well as HBa1C shows IGT -CMP WNL no liver abnormalities or elevated bili IGT diet and lifestyle modifications for patient Hba1c 6.0 recommend f/u in 6 months Prophylactic measure -pepcid -lovenox 40mg SC daily -encourage incentive spirometer All medical management as per Dr. Connell
[2017-10-05 08:06] LABS: BASO % 0.1 % (0.0-2.0); EOS # 0.1 K/uL (0.0-0.7); EOS % 1.3 % (0.0-4.0); HEMOGLOBIN 13.4 g/dL (12.0-18.0); LYMPH % 9.6 % (20.0-40.0); MEAN CORPUSCULAR HEMOGLOBIN 30.6 pg (27.0-31.0); MEAN CORPUSCULAR HGB CONC 34.8 g/dL (33.0-37.0); MEAN PLATELET VOLUME 7.8 fL (7.2-11.7); MONO # 0.8 K/uL (0.0-0.8); MONO % 7.2 % (0.0-10.0); NEUT # 8.8 K/uL (1.8-7.0); NEUT % 81.8 % (50.0-75.0); NRBC % 0.1 % (0.0-2.0); PLATELET COUNT 240 K/uL (130-400); RBC 4.38 Mil/uL (4.40-5.90); RED CELL DISTRIBUTION WIDTH 13.2 % (11.5-14.5); WHITE BLOOD COUNT 10.8 K/uL (4.8-10.8)
--- NOTE | 2017-10-05 08:13 | CP.PCM.PN ---
Subjective - Date & Time of Evaluation Date of Evaluation: 10/05/17 Time of Evaluation: 07:20 - Subjective Subjective: [facility] Surgery: Dr Solomon Pt S&E. Pt had low grade fever overnight, denies feeling fever. Denies any significant pain. Tolerating regular diet. Having BMs. Denies n/v, chills, sob or chest pain. Has been OOB and ambulating. Drain output 315/550 L-R respectively - serosanguinous Objective - Vital Signs/Intake and Output Vital Signs (last 24 hours): Temp Pulse Resp BP Pulse Ox 98.1 F 89 20 114/64 96 10/05/17 07:47 10/05/17 07:47 10/05/17 07:47 10/05/17 07:47 10/05/17 07:47 Intake and Output: 10/05/17 10/05/17 06:59 18:59 Intake Total 550 Output Total 1185 Balance -635 - Medications Medications: Current Medications Belladonna/Phenobarbital () 1 tab PO TID [facility] Last Admin: 10/04/17 18:20 Dose: 1 tab Enoxaparin Sodium (Lovenox) 40 mg SC DAILY [facility] Last Admin: 10/04/17 09:56 Dose: 40 mg Famotidine (Pepcid) 20 mg PO DAILY [facility] Last Admin: 10/04/17 09:55 Dose: 20 mg Octreotide Acetate (Sandostatin) 300 mcg SC Q8H [facility] Ondansetron HCl (Zofran Inj) 4 mg IVP Q6H PRN PRN Reason: Nausea/Vomiting Oxycodone/Acetaminophen (Percocet 5/325 Mg Tab) 1 tab PO Q4H PRN PRN Reason: Pain, Mild (1-3) Stop: 10/07/17 08:04 Last Admin: 10/04/17 09:55 Dose: 1 tab - Labs Labs: 10/04/17 07:10 10/04/17 07:10 PT 11.1 SECONDS (9.7-12.2) 10/01/17 06:54 INR 1.0 10/01/17 06:54 APTT 28 SECONDS (21-34) 10/01/17 06:54 - Constitutional Appears: Non-toxic, No Acute Distress - Eye Exam Eye Exam: Normal appearance. absent: Scleral icterus - ENT Exam ENT Exam: Mucous Membranes Moist - Respiratory Exam Respiratory Exam: absent: Accessory Muscle Use, Respiratory Distress - Cardiovascular Exam Cardiovascular Exam: REGULAR RHYTHM - GI/Abdominal Exam GI & Abdominal Exam: Soft, Tenderness (post-surgical and appropriate). absent: Distended, Firm, Guarding, Rigid Additional comments: dressings c/d/i - Neurological Exam Neurological Exam: Alert, Awake, Oriented x3 - Psychiatric Exam Psychiatric exam: Normal Affect, Normal Mood - Skin Skin Exam: Normal Color, Warm Assessment and Plan - Assessment and Plan (Free Text) Assessment: 57M POD#3 s/p robotic cholecystectomy w/ pancreatic cystojejunostomy Plan: will send of amylase from sharon drains to r/o panc leak octreotide 300ug Q8H prophylactically cont current pain mgmt f/u labs will d/w Dr Juanito Park, PGY3
[2017-10-05 08:19] LABS: ALB/GLOB RATIO 0.9 (1.0-2.1); ALBUMIN 3.1 g/dL (3.5-5.0); ALT/SGPT 52 U/L (21-72); AST/SGOT 32 U/L (17-59); BLOOD UREA NITROGEN 10 mg/dL (9-20); CALCIUM 7.9 mg/dl (8.6-10.4); GFR AFRICAN-AMERICAN > 60; GFR NON-AFRICAN AMERICAN > 60
[2017-10-05] MEDS: Enoxaparin 40 mg Syringe SC SCH (09:19)
[2017-10-05] MEDS: Belladonna-Phenobarbital PO SCH ×3 (09:19→18:24)
[2017-10-05] MEDS: Octreotide 500 mcg/ml Inj SC SCH ×2 (09:21→17:01)
[2017-10-05 10:18] LABS: BANDS 2 % (0-2); EOSINOPHIL 1 % (0-4); LYMPHOCYTE 10 % (20-40); MONOCYTE 7 % (0-10); NEUTROPHIL 80 % (50-75); PLATELET ESTIMATE NORMAL (NORMAL); TOTAL CELLS COUNTED 100
[2017-10-05] MEDS ORDERED: Bisacodyl 5mg EC Tab PO ONE ×2 (20:28→23:31)
--- NOTE | 2017-10-05 22:37 | PN ---
DATE: LOCATION: [facility]. Bed B. SUBJECTIVE: This is a 57-year-old male, seen and examined in rounds early today, without significant clinical changes or reported active bleeding, with a period of low-grade temperature on and off, with less complaint of any abdominal pain, nausea, or vomiting. No chest pain. The entire chart is reviewed including, but not limited to, the most recent lab and radiologist study results, current and previous medication list, current and previous medical events. His CBC reported to be normal with low creatinine of 0.7, blood glucose level 127, calcium 7.9, albumin 3.1. PHYSICAL EXAMINATION GENERAL: A 57-year-old male. VITAL SIGNS: Temperature of 101.6, heart rate 90, respiratory rate 20 to 22, blood pressure 110/66. HEENT: Showed pale, dry, oral mucosal membrane. Nonicteric sclerae. LUNGS: Few scattered crepitation, decreased air entry at bases. HEART: S1 and S2 with increased rate. ABDOMEN: Slight distention and generalized mild tenderness. No mass or organomegaly. No rebound tenderness or guarding. The patient tolerated regular diet so far and had more than one bowel movement since yesterday. EXTREMITIES: Without significant clubbing, cyanosis, or edema. NEURO: No reported new neurological deficit. IMPRESSION: 1. Exacerbation of peptic ulcer disease. 2. Status post cholecystectomy with pancreatic cystojejunostomy. 3. Malnutrition with hypoalbuminemia. 4. Recent history of pancreatic cystic lesion. SUGGESTION: 1. Continue current management. 2. Blood culture x2. 3. Peripheral hyperalimentation. 4. Further recommendation to follow. Rudi Andrew MD
[2017-10-06 00:46] VITALS: RESP 20
[2017-10-06] MEDS: Octreotide 500 mcg/ml Inj SC SCH ×3 (01:15→16:57)
--- NOTE | 2017-10-06 06:17 | CP.PCM.PN ---
Subjective - Date & Time of Evaluation Date of Evaluation: 10/06/17 Time of Evaluation: 06:14 - Subjective Subjective: General Surgery: Dr Solomon Pt S&E. Continues to have fevers overnight. Treated with tylenol but promptly returns. CXR yesterday shows no effusions/pneumonia. Nunez-cultures ordered. Pt denies any n/v, fevers, sob or chest pain. has minimal pain in ruq. Feels chills intermittently. Tolerating diet, passing flatus, having BMs. Drains 130/150 over 24 hours. amylase on drains 78 - no evidence of pancreatic leak Objective - Vital Signs/Intake and Output Vital Signs (last 24 hours): Temp Pulse Resp BP Pulse Ox 99.9 F H 86 20 100/62 94 L 10/06/17 01:00 10/06/17 00:00 10/06/17 00:00 10/06/17 00:00 10/06/17 00:00 Intake and Output: 10/05/17 10/06/17 18:59 06:59 Intake Total 400 400 Output Total 165 670 Balance 235 -270 - Medications Medications: Current Medications Acetaminophen (Tylenol 325mg Tab) 650 mg PO Q6 PRN PRN Reason: Fever >100.4 F Last Admin: 10/05/17 16:30 Dose: 650 mg Belladonna/Phenobarbital () 1 tab PO TID [facility] Last Admin: 10/05/17 18:24 Dose: 1 tab Enoxaparin Sodium (Lovenox) 40 mg SC DAILY [facility] Last Admin: 10/05/17 09:19 Dose: 40 mg Octreotide Acetate (Sandostatin) 300 mcg SC Q8H [facility] Last Admin: 10/06/17 01:15 Dose: Not Given Ondansetron HCl (Zofran Inj) 4 mg IVP Q6H PRN PRN Reason: Nausea/Vomiting Oxycodone/Acetaminophen (Percocet 5/325 Mg Tab) 1 tab PO Q4H PRN PRN Reason: Pain, Mild (1-3) Stop: 10/07/17 08:04 Last Admin: 10/04/17 09:55 Dose: 1 tab Pantoprazole Sodium (Protonix Inj) 40 mg IVP DAILY [facility] Last Admin: 10/05/17 23:38 Dose: 40 mg - Labs Labs: 10/05/17 07:58 10/05/17 07:58 PT 11.1 SECONDS (9.7-12.2) 10/01/17 06:54 INR 1.0 10/01/17 06:54 APTT 28 SECONDS (21-34) 10/01/17 06:54 - Constitutional Appears: Non-toxic, No Acute Distress - ENT Exam ENT Exam: Mucous Membranes Moist - Respiratory Exam Respiratory Exam: absent: Accessory Muscle Use, Respiratory Distress - Cardiovascular Exam Cardiovascular Exam: REGULAR RHYTHM. absent: Tachycardia - GI/Abdominal Exam GI & Abdominal Exam: Soft. absent: Distended, Firm, Guarding, Tenderness Additional comments: incisions c/d/i - Neurological Exam Neurological Exam: Alert, Awake, Oriented x3 - Psychiatric Exam Psychiatric exam: Normal Affect, Normal Mood - Skin Skin Exam: Normal Color, Warm Assessment and Plan - Assessment and Plan (Free Text) Assessment: 57M POD# 4 s/p cholecystectomy w/ brittany-en-y pancreatic cystjejunostomy Plan: cont current care work-up for fever source in progress: CXR, urine, blood, sputum cx no leukocytosis continue work with incentive spirometer 10x Q1H protonix and dulcolax added will d/w Dr Juanito Park, PGY3
[2017-10-06 07:05] LABS: HEMOGLOBIN 12.6 g/dL (12.0-18.0); MEAN CELL VOLUME 87.8 fL (80.0-94.0); MEAN CORPUSCULAR HGB CONC 34.1 g/dL (33.0-37.0); MEAN PLATELET VOLUME 7.5 fL (7.2-11.7); RBC 4.21 Mil/uL (4.40-5.90); RED CELL DISTRIBUTION WIDTH 13.7 % (11.5-14.5); WHITE BLOOD COUNT 10.3 K/uL (4.8-10.8)
[2017-10-06 07:13] LABS: ALB/GLOB RATIO 0.9 (1.0-2.1); ALT/SGPT 71 U/L (21-72); AST/SGOT 34 U/L (17-59); BLOOD UREA NITROGEN 10 mg/dL (9-20); CALCIUM 7.9 mg/dl (8.6-10.4); GFR AFRICAN-AMERICAN > 60; GFR NON-AFRICAN AMERICAN > 60
--- NOTE | 2017-10-06 09:03 | RAD ---
HISTORY: fever COMPARISON: 09/30/2017 FINDINGS: LUNGS: Probable subsegmental atelectasis at right base. No acute infiltrate. PLEURA: Minimal elevation of right hemidiaphragm, nonspecific. No pleural effusion or pneumothorax. CARDIOVASCULAR: Normal. OSSEOUS STRUCTURES: No significant abnormalities. VISUALIZED UPPER ABDOMEN: Normal. OTHER FINDINGS: None. IMPRESSION: No active disease.
[2017-10-06] MEDS: Belladonna-Phenobarbital PO SCH ×3 (09:44→17:03)
[2017-10-06] MEDS: Enoxaparin 40 mg Syringe SC SCH (09:44)
[2017-10-06] MEDS: metroNIDAZOLE IV 500 mg/100 ml 500 MG/100 ML BAG IVPB SCH ×2 (09:45→16:54)
[2017-10-06] MEDS: Piperacill/Tazo 3.375gm in Dex 3.375 GM/50 ML BAG IVPB SCH ×2 (10:49→18:38)
--- NOTE | 2017-10-06 11:57 | PN ---
DATE: LOCATION: [facility], bed B SUBJECTIVE: This is a 57-year-old male seen and examined in rounds with intermittent period of abdominal pain, with reported nausea and vomiting as well as low-grade fever by the nursing staff. The patient is not on any antibiotics. The entire chart is reviewed including, but not limited to the most recent lab and radiology study results, current and previous medication list, current and previous medical events. Today's CBC reported to be normal, with low potassium of 3.4, blood glucose level 139, calcium 7.9, albumin 3.0. PHYSICAL EXAMINATION: GENERAL: A 57-year-old male. VITAL SIGNS: Temperature of 99.9, pulse of 82, respiratory rate 20 to 22, with blood pressure of 104/60. The patient is still complaining of abdominal pain with distention. HEENT: Showed dry oral mucous membrane. Nonicteric sclerae. LUNGS: Few scattered crepitation. Decreased air entry at bases. HEART: Positive S1 and S2. ABDOMEN: Soft, but with slight distention, generalized tenderness, covered with clean dressing. EXTREMITIES: Without significant clubbing, edema or cyanosis. NEUROLOGIC: No reported new neurological deficits, sensory or motor. IMPRESSION: 1. Pancreatic cystic complex lesion, treated surgically with status post cholecystectomy. 2. Low-grade fever of unclear etiology, to rule out pancreatic cystic lesion leak. 3. Malnutrition with hypoalbuminemia. 4. Electrolyte imbalance. 5. Peptic ulcer disease by recent history. SUGGESTIONS: 1. Continue current management. 2. Start Flagyl IV. 3. Reglan IV. 4. ID consultation. 5. Further recommendations to follow. Rudi Andrew MD
[2017-10-06] MEDS: Lactated Ringer's 1,000 ML IV SCH ×2 (16:25→22:31)
[2017-10-07] MEDS: metroNIDAZOLE IV 500 mg/100 ml 500 MG/100 ML BAG IVPB SCH ×3 (00:38→17:00)
[2017-10-07] MEDS: Octreotide 500 mcg/ml Inj SC SCH ×3 (00:39→18:08)
[2017-10-07] MEDS: Piperacill/Tazo 3.375gm in Dex 3.375 GM/50 ML BAG IVPB SCH ×3 (01:18→18:09)
[2017-10-07] MEDS: Lactated Ringer's 1,000 ML IV SCH ×3 (04:10→18:25)
--- NOTE | 2017-10-07 06:53 | CP.PCM.PN ---
Subjective - Date & Time of Evaluation Date of Evaluation: 10/07/17 Time of Evaluation: 06:49 - Subjective Subjective: Hepatobiliary Surgery Progress Note for Dr. Solomon This 57M was seen and examined this AM at bedside no acute events lovernight. Last febrile 6pm yesterday fever 102 afebrile since. Pt reports he is feeling better with resolution of his nausea. He is moving his bowels and passing gas. He endorses decreased pain. He reports he is using his incentive spirometer, he was encouraged to use it more and to walk more. Objective - Vital Signs/Intake and Output Vital Signs (last 24 hours): Temp Pulse Resp BP Pulse Ox 98.5 F 79 20 101/61 97 10/07/17 00:00 10/07/17 00:00 10/07/17 00:00 10/07/17 00:00 10/07/17 00:00 Intake and Output: 10/06/17 10/07/17 18:59 06:59 Intake Total 400 2470 Output Total 90 1770 Balance 310 700 - Medications Medications: Current Medications Acetaminophen (Tylenol 325mg Tab) 650 mg PO Q6 PRN PRN Reason: Fever >100.4 F Last Admin: 10/06/17 18:34 Dose: 650 mg Belladonna/Phenobarbital () 1 tab PO TID [facility] Last Admin: 10/06/17 17:03 Dose: 1 tab Enoxaparin Sodium (Lovenox) 40 mg SC DAILY [facility] Last Admin: 10/06/17 09:44 Dose: 40 mg Metronidazole (Flagyl) 500 mg in 100 mls @ 100 mls/hr IVPB Q8H [facility] PRN Reason: Protocol Last Admin: 10/07/17 00:38 Dose: 100 mls/hr Piperacillin Sod/Tazobactam Sod (Zosyn 3.375 Gm Iv Premix) 3.375 gm in 50 mls @ 100 mls/hr IVPB Q8H [facility] PRN Reason: Protocol Last Admin: 10/07/17 01:18 Dose: 100 mls/hr Lactated Ringer's (Lactated Ringer's) 1,000 mls @ 150 mls/hr IV .Q6H40M [facility] Last Admin: 10/07/17 04:10 Dose: 150 mls/hr Metoclopramide HCl (Reglan) 5 mg IVP Q6 [facility] Last Admin: 10/07/17 05:31 Dose: 5 mg Octreotide Acetate (Sandostatin) 300 mcg SC Q8H [facility] Last Admin: 10/07/17 00:39 Dose: 300 mcg Oxycodone/Acetaminophen (Percocet 5/325 Mg Tab) 1 tab PO Q4H PRN PRN Reason: Pain, Mild (1-3) Stop: 10/07/17 08:04 Last Admin: 10/04/17 09:55 Dose: 1 tab Pantoprazole Sodium (Protonix Inj) 40 mg IVP DAILY [facility] Last Admin: 10/06/17 09:44 Dose: 40 mg - Labs Labs: 10/06/17 06:44 10/06/17 06:44 PT 11.1 SECONDS (9.7-12.2) 10/01/17 06:54 INR 1.0 10/01/17 06:54 APTT 28 SECONDS (21-34) 10/01/17 06:54 - Constitutional Appears: Non-toxic, No Acute Distress - Head Exam Head Exam: ATRAUMATIC - Eye Exam Eye Exam: EOMI, Normal appearance - ENT Exam ENT Exam: Mucous Membranes Moist - Respiratory Exam Respiratory Exam: NORMAL BREATHING PATTERN - Cardiovascular Exam Cardiovascular Exam: +S1, +S2 - GI/Abdominal Exam GI & Abdominal Exam: Soft. absent: Guarding, Rigid, Tenderness Additional comments: Drain output in tubing serous with old serosang fluid in bulb inscisions well aproximated non tender non erythematous non draining - Neurological Exam Neurological Exam: Alert, Awake - Psychiatric Exam Psychiatric exam: Normal Affect, Normal Mood - Skin Skin Exam: Dry, Intact Assessment and Plan - Assessment and Plan (Free Text) Assessment: 57M POD# 5 s/p cholecystectomy w/ brittany-en-y pancreatic cystjejunostomy Plan: cont current care work-up for fever source in progress: CXR, urine, blood, sputum cx will followup am labs continue work with incentive spirometer 10x Q1H d/w Dr Juanito Rey PGY2
[2017-10-07 08:05] LABS: MEAN CORPUSCULAR HEMOGLOBIN 29.9 pg (27.0-31.0); MEAN PLATELET VOLUME 7.5 fL (7.2-11.7); RBC 3.68 Mil/uL (4.40-5.90); RED CELL DISTRIBUTION WIDTH 13.4 % (11.5-14.5); WHITE BLOOD COUNT 11.1 K/uL (4.8-10.8)
[2017-10-07 08:22] LABS: ALB/GLOB RATIO 0.8 (1.0-2.1); ALBUMIN 2.6 g/dL (3.5-5.0); ALT/SGPT 51 U/L (21-72); AST/SGOT 17 U/L (17-59); BLOOD UREA NITROGEN 9 mg/dL (9-20); CALCIUM 7.5 mg/dl (8.6-10.4); GFR AFRICAN-AMERICAN > 60; GFR NON-AFRICAN AMERICAN > 60
[2017-10-07] MEDS: Belladonna-Phenobarbital PO SCH ×3 (09:19→18:06)
[2017-10-07] MEDS: Enoxaparin 40 mg Syringe SC SCH (09:20)
--- NOTE | 2017-10-07 12:05 | PN ---
DATE: LOCATION: [facility], bed B. SUBJECTIVE: This is a 57-year-old male, with status post cholecystectomy and pancreatic cyst drainage with reported recent fever, afebrile this morning with less episodes of dyspepsia and nausea but no vomiting, had bowel movement and passing gas recently without any reported active bleeding. The entire chart is reviewed including, but not limited to the most recent lab and radiology study results and today's lab is still pending, but the latest CBC reported to be normal. The patient still has low albumin, low calcium, increased blood glucose level, with low potassium and low creatinine. PHYSICAL EXAMINATION GENERAL: A 57-year-old male. VITAL SIGNS: Afebrile, pulse of 82, respiratory rate 20 to 22, and blood pressure of 104/60. HEENT: Showed pale, dry oral mucous membranes. Nonicteric sclerae. LUNGS: Few scattered crepitations, decreased air entry at bases. HEART: Positive S1 and S2. ABDOMEN: Soft. Bowel sounds are present. No masses or organomegaly. No rebound tenderness or guarding. EXTREMITIES: Without significant clubbing, cyanosis, or edema. NEUROLOGIC: No reported new neurological deficits, sensory or motor. IMPRESSION: 1. Pancreatic cystic complex lesion, drained surgically, with status post cholecystostomy. 2. Malnutrition with hypoalbuminemia. 3. Electrolyte imbalance. SUGGESTIONS: 1. Continue current management. 2. Peripheral hyperalimentation as needed. 3. Follow up cancer markers. Rudi Andrew MD
--- NOTE | 2017-10-07 16:47 | CP.PCM.CON ---
History of Present Illness - History of Present Illness History of Present Illness: 57M who presented to ED with sudden onset abdominal pain. Pt reports pain is epigastric and radiates to the mid back. States pain was 10/10 at one point but now is more of a dull 3/10. Pain was associated with 2 episodes of emesis, non-blood and non-billous. Not associated with eating. Pt denies any history of fevers, chills, sweats, recent weight loss, jaundice, anorexia, diarrhea or constipation. States he believes he had one similar episode a few months back but that resolved on its own. CT scan in ED demonstrated distal pancreatic tail mass concerning for psuedocyst vs neoplasm. patient is post op s/p robotic cholecystectomy with brittany-en-Y pancreatic cystojejunostomy. PMH: none PSH; none Fam Hx: Mother/Father with HTN, denies cancer history Social: 1/2 ppd smoker, social drinker Review of Systems - Review of Systems All systems: reviewed and no additional remarkable complaints except - Constitutional Constitutional: As Per HPI, Anorexia, Fever - EENT Eyes: absent: As Per HPI, Blind Spots, Blurred Vision, Change in Vision, Decreased Night Vision, Diplopia, Discharge, Dry Eye, Exophthalmos, Floaters, Irritation, Itchy Eyes, Loss of Peripheral Vision, Pain, Photophobia, Requires Corrective Lenses, Sees Flashes, Spots in Vision, Tunnel Vision, Other Visual Disturbances, Loss of Vision, Other Ears: absent: As Per HPI, Decreased Hearing, Ear Discharge, Ear Pain, Tinnitus, Abnormal Hearing, Disequilibrium, Dizziness, Other Nose/Mouth/Throat: absent: As Per HPI, Epistaxis, Nasal Congestion, Nasal Discharge, Nasal Obstruction, Nasal Trauma, Nose Pain, Post Nasal Drip, Sinus Pain, Sinus Pressure, Bleeding Gums, Change in Voice, Dental Pain, Dry Mouth, Dysphagia, Halitosis, Hoarsness, Lip Swelling, Mouth Lesions, Mouth Pain, Odynophagia, Sore Throat, Throat Swelling, Tongue Swelling, Facial Pain, Neck Pain, Neck Mass, Other - Cardiovascular Cardiovascular: absent: As Per HPI, Acrocyanosis, Chest Pain, Chest Pain at Rest , Chest Pain with Activity, Claudication, Diaphoresis, Dyspnea, Dyspnea on Exertion, Edema, Irregular Heart Rhythm, Pain Radiating to Arm/Neck/Jaw, Leg Edema, Leg Ulcers, Lightheadedness, Orthopnea, Palpitations, Paroxysmal Nocturnal Dyspnea, Pedal Edema, Radiating Pain, Rapid Heart Rate, Slow Heart Rate, Syncope, Other - Respiratory Respiratory: absent: As Per HPI, Cough, Dyspnea, Hemoptysis, Dyspnea on Exertion , Wheezing, Snoring, Stridor, Pain on Inspiration, Chest Congestion, Excessive Mucous Production, Change in Mucous Color, Pain with Coughing, Other - Gastrointestinal Gastrointestinal: As Per HPI - Genitourinary Genitourinary: absent: As Per HPI, Change in Urinary Stream, Difficulty Urinating, Dysuria, Flank Pain, Hematuria, Pyuria, Nocturia, Urinary Incontinence, Urinary Frequency, Urinary Hesitance, Urinary Urgency, Voiding Freq/Small Amts, Freq UTI, Hx Renal/Bladder Calculi, Hx /Renal Surgery, Bladder Distension, Other - Musculoskeletal Musculoskeletal: absent: As Per HPI, Abnormal Gait, Arthralgias, Atrophy, Back Pain, Deformity, Joint Swelling, Limited Range of Motion, Loss of Height, Muscle Cramps, Muscle Weakness, Myalgias, Neck Pain, Numbness, Radiating Pain into Limb, Stiffness, Tingling, Other - Integumentary Integumentary: absent: As Per HPI, Acne, Alopecia, Bleeding Lesions, Change in Hair, Change in Nails, Change in Pigmentation, Changing Lesions, Dry Skin, Erythema, Furuncle, Hirsutism, Lesions, New Lesions, Non-Healing Lesions, Photosensitivity, Pruritus, Rash, Skin Pain, Skin Ulcer, Sores, Striae, Swelling , Unusual Bruising, Wounds, Jaundice, Other - Neurological Neurological: absent: As Per HPI, Abnormal Gait, Abnormal Hearing, Abnormal Movements, Abnormal Speech, Behavioral Changes, Burning Sensations, Confusion, Convulsions, Disequilibrium, Dizziness, Numbness, Focal Weakness, Frequent Falls , Headaches, Lack of Coordination, Loss of Vision, Memory Loss, Paresthesias, Radicular Pain, Restless Legs, Sensory Deficit, Syncope, Tingling, Tremor, Vertigo, Weakness, Other Visual Disturbances, Other - Psychiatric Psychiatric: absent: As Per HPI, Abnormal Sleep Pattern, Anhedonia, Anxiety, Auditory Hallucinations, Behavioral Changes, Change in Appetite, Change in Libido, Confusion, Depression, Difficulty Concentrating, Hallucinations, Homicidal Ideation, Hopelessness, Irritability, Memory Loss, Mood Swings, Panic Attacks, Paranoia, Suicidal Ideation, Visual Hallucinations, Tactile Hallucinations, Other - Endocrine Endocrine: absent: As Per HPI, Change in Body Appearance, Change in Libido, Cold Intolorance, Deepening of Voice, Excessive Sweating, Fatigue, Flushing, Heat Intolorance, Increase in Ring/Shoe/Hat Size, Palpitations, Polydipsia, Polyphagia, Polyuria, Other - Hematologic/Lymphatic Hematologic: absent: As Per HPI, Easy Bleeding, Easy Bruising, Lymphadenopathy, Other Past Patient History - Past Medical History & Family History Past Medical History?: No - Past Social History Smoking Status: Unknown If Ever Smoked - MUSCULOSKELETAL/RHEUMATOLOGICAL Hx Falls: No - PSYCHIATRIC Hx Substance Use: No - SURGICAL HISTORY Hx Surgeries: No - ANESTHESIA Hx Anesthesia: No Meds Allergies/Adverse Reactions: Allergies Allergy/AdvReac Type Severity Reaction Status Date / Time No Known Allergies Allergy Verified 09/27/17 04:10 - Medications Medications: Current Medications Acetaminophen (Tylenol 325mg Tab) 650 mg PO Q6 PRN PRN Reason: Fever >100.4 F Last Admin: 10/06/17 18:34 Dose: 650 mg Belladonna/Phenobarbital () 1 tab PO TID [facility] Last Admin: 10/07/17 13:19 Dose: 1 tab Enoxaparin Sodium (Lovenox) 40 mg SC DAILY [facility] Last Admin: 10/07/17 09:20 Dose: 40 mg Metronidazole (Flagyl) 500 mg in 100 mls @ 100 mls/hr IVPB Q8H [facility] PRN Reason: Protocol Last Admin: 10/07/17 09:00 Dose: 100 mls/hr Piperacillin Sod/Tazobactam Sod (Zosyn 3.375 Gm Iv Premix) 3.375 gm in 50 mls @ 100 mls/hr IVPB Q8H [facility] PRN Reason: Protocol Last Admin: 10/07/17 10:16 Dose: 100 mls/hr Lactated Ringer's (Lactated Ringer's) 1,000 mls @ 150 mls/hr IV .Q6H40M [facility] Last Admin: 10/07/17 11:50 Dose: 150 mls/hr Metoclopramide HCl (Reglan) 5 mg IVP Q6 [facility] Last Admin: 10/07/17 12:56 Dose: 5 mg Octreotide Acetate (Sandostatin) 300 mcg SC Q8H [facility] Last Admin: 10/07/17 09:30 Dose: 300 mcg Pantoprazole Sodium (Protonix Inj) 40 mg IVP DAILY [facility] Last Admin: 10/07/17 09:20 Dose: 40 mg Physical Exam - Constitutional Appears: Non-toxic, Chronically Ill - Head Exam Head Exam: NORMOCEPHALIC - Eye Exam Eye Exam: absent: Scleral icterus - ENT Exam ENT Exam: Mucous Membranes Dry, Normal External Ear Exam - Neck Exam Neck exam: Negative for: Lymphadenopathy - Respiratory Exam Respiratory Exam: Decreased Breath Sounds, Clear to Auscultation Bilateral - Cardiovascular Exam Cardiovascular Exam: REGULAR RHYTHM, +S1, +S2 - GI/Abdominal Exam GI & Abdominal Exam: Diminished Bowel Sounds, Distended, Guarding, Soft, Tenderness. absent: Rebound, Rigid Additional comments: draINS IN PLACE - Rectal Exam Rectal Exam: Deferred - Exam Exam: NORMAL INSPECTION - Extremities Exam Extremities exam: Negative for: calf tenderness, pedal edema, tenderness, pedal pulses present - Neurological Exam Neurological exam: Alert, CN II-XII Intact, Oriented x3, Reflexes Normal - Psychiatric Exam Psychiatric exam: Normal Mood - Skin Skin Exam: Dry, Intact Results - Vital Signs Recent Vital Signs: Last Vital Signs Temp 98.7 F 10/07/17 08:02 Pulse 86 10/07/17 08:02 Resp 20 10/07/17 08:02 BP 117/71 10/07/17 08:02 Pulse Ox 95 10/07/17 08:02 - Labs Result Diagrams: 10/07/17 07:53 10/07/17 07:53 Labs: Laboratory Results - last 24 hr 10/07/17 10/07/17 07:53 07:53 WBC 11.1 H RBC 3.68 L Hgb 11.0 L Hct 32.4 L MCV 88.0 MCH 29.9 MCHC 34.0 RDW 13.4 Plt Count 254 MPV 7.5 Sodium 134 Potassium 3.3 L Chloride 98 Carbon Dioxide 27 Anion Gap 12 BUN 9 Creatinine 0.7 L Est GFR ( Amer) > 60 Est GFR (Non-Af Amer) > 60 Random Glucose 101 Calcium 7.5 L Phosphorus 2.7 Magnesium 2.0 Total Bilirubin 0.4 AST 17 D ALT 51 Alkaline Phosphatase 68 Total Protein 5.7 L Albumin 2.6 L Globulin 3.1 Albumin/Globulin Ratio 0.8 L Assessment & Plan (1) Abdominal pain Status: Acute (2) Pancreatic cyst Status: Acute (3) Abscess Status: Acute - Assessment and Plan (Free Text) Assessment: s/p robotic cholecystectomy with brittany-en-Y pancreatic cystojejunostomy. WITH RECURRENT FEVERS UNCLEAR SOURCE CULTURES SENT IV ANTIBIOTICS ADJUSTED Plan: CONT IV ZOSYN
[2017-10-08] MEDS: metroNIDAZOLE IV 500 mg/100 ml 500 MG/100 ML BAG IVPB SCH ×2 (01:04→08:50)
[2017-10-08] MEDS: Piperacill/Tazo 3.375gm in Dex 3.375 GM/50 ML BAG IVPB SCH ×2 (01:05→10:17)
[2017-10-08] MEDS: Octreotide 500 mcg/ml Inj SC SCH ×2 (01:05→08:52)
[2017-10-08] MEDS: Lactated Ringer's 1,000 ML IV SCH ×3 (05:20→13:22)
[2017-10-08 07:47] VITALS: TEMP 98.8
[2017-10-08 08:52] LABS: HEMOGLOBIN 11.6 g/dL (12.0-18.0); MEAN CELL VOLUME 87.9 fL (80.0-94.0); MEAN CORPUSCULAR HGB CONC 34.2 g/dL (33.0-37.0); MEAN PLATELET VOLUME 7.6 fL (7.2-11.7); RBC 3.86 Mil/uL (4.40-5.90); RED CELL DISTRIBUTION WIDTH 13.4 % (11.5-14.5); WHITE BLOOD COUNT 11.2 K/uL (4.8-10.8)
--- NOTE | 2017-10-08 09:23 | CP.PCM.PN ---
Subjective - Date & Time of Evaluation Date of Evaluation: 10/08/17 Time of Evaluation: 09:14 - Subjective Subjective: PGY-[address] Connell's service: Pt seen and examined at bedside. Nursing reports no acute events overnight. Pt afebrile overnight, denies pain, is moving bowels/passing gas, and tolerating diet. Objective - Vital Signs/Intake and Output Vital Signs (last 24 hours): Temp Pulse Resp BP Pulse Ox 98.8 F 73 20 101/62 95 10/08/17 07:44 10/08/17 07:44 10/08/17 07:44 10/08/17 07:44 10/08/17 07:44 Intake and Output: 10/08/17 10/08/17 06:59 18:59 Intake Total 2350 Output Total 870 Balance 1480 - Medications Medications: Current Medications Acetaminophen (Tylenol 325mg Tab) 650 mg PO Q6 PRN PRN Reason: Fever >100.4 F Last Admin: 10/06/17 18:34 Dose: 650 mg Belladonna/Phenobarbital () 1 tab PO TID [facility] Last Admin: 10/07/17 18:06 Dose: 1 tab Enoxaparin Sodium (Lovenox) 40 mg SC DAILY [facility] Last Admin: 10/07/17 09:20 Dose: 40 mg Metronidazole (Flagyl) 500 mg in 100 mls @ 100 mls/hr IVPB Q8H [facility] PRN Reason: Protocol Last Admin: 10/08/17 08:50 Dose: 100 mls/hr Piperacillin Sod/Tazobactam Sod (Zosyn 3.375 Gm Iv Premix) 3.375 gm in 50 mls @ 100 mls/hr IVPB Q8H [facility] PRN Reason: Protocol Last Admin: 10/08/17 01:05 Dose: 100 mls/hr Lactated Ringer's (Lactated Ringer's) 1,000 mls @ 150 mls/hr IV .Q6H40M [facility] Last Admin: 10/08/17 05:20 Dose: Not Given Metoclopramide HCl (Reglan) 5 mg IVP Q6 [facility] Last Admin: 10/08/17 05:15 Dose: 5 mg Octreotide Acetate (Sandostatin) 300 mcg SC Q8H [facility] Last Admin: 10/08/17 08:52 Dose: 300 mcg Pantoprazole Sodium (Protonix Inj) 40 mg IVP DAILY [facility] Last Admin: 10/07/17 09:20 Dose: 40 mg - Labs Labs: 10/08/17 08:38 10/07/17 07:53 PT 11.1 SECONDS (9.7-12.2) 10/01/17 06:54 INR 1.0 10/01/17 06:54 APTT 28 SECONDS (21-34) 10/01/17 06:54 - Additional Findings Additional findings: - Constitutional Appears: Non-toxic, No Acute Distress - Head Exam Head Exam: ATRAUMATIC - Eye Exam Eye Exam: EOMI, Normal appearance - ENT Exam ENT Exam: Mucous Membranes Moist - Respiratory Exam Respiratory Exam: NORMAL BREATHING PATTERN - Cardiovascular Exam Cardiovascular Exam: +S1, +S2 - GI/Abdominal Exam GI & Abdominal Exam: Soft. absent: Guarding, Rigid, Tenderness Additional comments: Drain output in tubing serous with old serosang fluid in bulb inscisions well aproximated non tender non erythematous non draining - Neurological Exam Neurological Exam: Alert, Awake - Psychiatric Exam Psychiatric exam: Normal Affect, Normal Mood - Skin Skin Exam: Dry, Intact Assessment and Plan - Assessment and Plan (Free Text) Plan: Plan: 57yo M admitted to the hospital for abdominal pain and vomiting, found to have pancreatic cyst vs neoplasm Febrile, Resolved Pancultures negative -CXR negative, Blood Cultures negative Tmax 100.8 F overnight on POD#2 (10/04/17) - resolved this AM WBC declining, left shift correcting, no bands Will monitor closely for signs of infection, persistent fever Pancreatic Cyst vs Neoplasm 316: patient POD #3 robotic cholecystectomy with brittany-en-Y pancreatic cystojejunostomy with Dr. Solomon Surgical team recommendations: - Sending amylase from [facility] drains to eval for panc leak - Octreotide 300ug Q8H prophylactically (start 10/05/17) OR body fluid culture no growth for 2 days Percocet 1 tab q4h prn as per surgical team Work-up: -CT Abdomen shows cyst vs neoplasm; please refer to full report -MRCP confirms mass in the pancreas; neoplasm vs cyst; please refer to full report -CEA and CA-19-9 markers AFP all WNL -hepatitis panel neg, TSH .82, HIV neg, Lipid Panel WNL as well as HBa1C shows IGT -CMP WNL no liver abnormalities or elevated bili IGT diet and lifestyle modifications for patient Hba1c 6.0 recommend f/u in 6 months Prophylactic measure -pepcid -lovenox 40mg SC daily -encourage incentive spirometer All medical management as per Dr. Connell
--- NOTE | 2017-10-08 09:43 | PCM.OP ---
Operative Report - Operative Report Date of Surgery/Procedure: 10/02/17 Time of Surgery/Procedure: 08:00 Surgeon: Dr. Gerard Solomon Electrolysis Investigator: Dr. Kirk Petty, Dr. Luis Urias Anesthesia/Sedation: general/Dr. Villegas Pre-Operative Diagnosis: acute cholecystitis and pancreas paseudocyst Post-Operative Diagnosis: same Indication for Surgery: abdominal pain Operative Findings: as above Procedure/Operation Description: 1-Robotic Cholecystectomy. 2-Robotic Brittany-en- y pancreas pseudocyst jejunostomy. Brief History: This patient was admitted though the ED with abdominal pain. CT scan demostrated a large pancrea cyst consistent with a pancreas pesudocyst. Histroy from the patient reveled multiple epsiodes of perigastric pain over the past 2 years consistent with cholecystitis and pancreatitis. Description of the Procedure: The patinet was taken to the operating room and after induction of endotracheal anesthesia he was prepped and drapped in the usual sterile manner. A periumbilical robotic triocar was placed under direct vision. The abdomen was insuflated with CO2 and penumperitoneum was achieved. The first portion of the operation was directed at the gallbladder and three other trocars were palced stratigically. With the robot the gallbladder was retracted cephalad and lateral, the cystic structures were dissected and the critical view waas obtained. These structures were ligatred with clips and then transected. The gallbldder was releived from the gallbldder plate with electrocautery. The specimen was removed through the periumbilical port. Part two of the oepration consisted of the nroux-en-y and cyst jejunostomy. The robot was reappropriated to the left upper quadrant and ulterior tricars werre placed for assitance. The cyst was dissected from the retroperiotneum and the pancreas was dissected to the level of the tail wherre this cyst was located. Once dissected our attenion turned to creating the brittany- en-y. Approximately 70 cm of jejunum was measured and the jejumum was transected with NIK stapler. Another 70 cm was measured distally and the brittany-en -y was created with NIK stapler, the rent was closed with 3-0 vicryl continuous for the mucosa and interrupted for the serosa. The mesneteric rent was clsoed with 3-0 vicryl in a continuous fashion. The proxmal brittany limb was then dleivered in a retrocolic fashion to the left of the middle colic vessels and brought into the retroperitoneum for the future anastomosis. The cyst wall was incised with electrocautery and the contents, a clearish liquid, was aspirated. The cyst was was incided and a small portion of the cyst wall was sent to pathology. Frozen section did not reveal any evidence of epithelium. The jejunum was then anastomosed to the cyst with continuous 3-0 vicryl sutures. With the cyst jejunostomy complete the rent in the colon mesentery was clsoed with continuous 3-0 vicryl sutures. The anastomses were examiend and all were felt to be adequate. Hemostasis was also deemed adeqaute. Pneumoperitoneum was relased and all trocars were removed. The periumbilkical port site was closed with 2-0 vicryl. All skin sites were closed with 4-0 monocryl. Clean dressoing were applied. The patient was then awakended, extubated and brought to the recovery room in stable condition. Estimated Blood Loss: 350 cc Blood Replaced: 2500 cc crystalloids Sponge/Instrument Count: correct Drains: Fernie 19F times two Complications: none Specimen: pancreas cyst wall FS (-) for epithelium Discharge & Condition: stable
[2017-10-08] MEDS: Belladonna-Phenobarbital PO SCH ×2 (10:16→13:21)
[2017-10-08] MEDS: Enoxaparin 40 mg Syringe SC SCH (10:17)
--- NOTE | 2017-10-08 10:39 | CP.PCM.PN ---
Subjective - Date & Time of Evaluation Date of Evaluation: 10/08/17 Time of Evaluation: 10:36 - Subjective Subjective: General Surgery: Dr Kaye Pt S&E. NAEO. Afebrile for past 36 hours. No + cultures back from [facility]- culture ordered on sunday. Pt denies N/V, F/C. state she is feeling much better. Having BMs and tolerating regular diet. Objective - Vital Signs/Intake and Output Vital Signs (last 24 hours): Temp Pulse Resp BP Pulse Ox 98.8 F 73 20 101/62 95 10/08/17 07:44 10/08/17 07:44 10/08/17 07:44 10/08/17 07:44 10/08/17 07:44 Intake and Output: 10/08/17 10/08/17 06:59 18:59 Intake Total 2350 Output Total 870 Balance 1480 - Medications Medications: Current Medications Acetaminophen (Tylenol 325mg Tab) 650 mg PO Q6 PRN PRN Reason: Fever >100.4 F Last Admin: 10/06/17 18:34 Dose: 650 mg Belladonna/Phenobarbital () 1 tab PO TID [facility] Last Admin: 10/08/17 10:16 Dose: 1 tab Enoxaparin Sodium (Lovenox) 40 mg SC DAILY [facility] Last Admin: 10/08/17 10:17 Dose: 40 mg Metronidazole (Flagyl) 500 mg in 100 mls @ 100 mls/hr IVPB Q8H [facility] PRN Reason: Protocol Last Admin: 10/08/17 08:50 Dose: 100 mls/hr Piperacillin Sod/Tazobactam Sod (Zosyn 3.375 Gm Iv Premix) 3.375 gm in 50 mls @ 100 mls/hr IVPB Q8H [facility] PRN Reason: Protocol Last Admin: 10/08/17 10:17 Dose: 100 mls/hr Lactated Ringer's (Lactated Ringer's) 1,000 mls @ 150 mls/hr IV .Q6H40M [facility] Last Admin: 10/08/17 05:20 Dose: Not Given Metoclopramide HCl (Reglan) 5 mg IVP Q6 [facility] Last Admin: 10/08/17 05:15 Dose: 5 mg Octreotide Acetate (Sandostatin) 300 mcg SC Q8H [facility] Last Admin: 10/08/17 08:52 Dose: 300 mcg Pantoprazole Sodium (Protonix Inj) 40 mg IVP DAILY [facility] Last Admin: 10/08/17 10:16 Dose: 40 mg - Labs Labs: 10/08/17 08:38 10/07/17 07:53 PT 11.1 SECONDS (9.7-12.2) 10/01/17 06:54 INR 1.0 10/01/17 06:54 APTT 28 SECONDS (21-34) 10/01/17 06:54 - Constitutional Appears: Non-toxic, No Acute Distress - ENT Exam ENT Exam: Mucous Membranes Moist - Respiratory Exam Respiratory Exam: absent: Accessory Muscle Use, Respiratory Distress - Cardiovascular Exam Cardiovascular Exam: REGULAR RHYTHM. absent: Tachycardia - GI/Abdominal Exam GI & Abdominal Exam: Soft. absent: Distended, Tenderness Additional comments: incisions c/d/i - Neurological Exam Neurological Exam: Alert, Awake, Oriented x3 - Psychiatric Exam Psychiatric exam: Normal Affect, Normal Mood - Skin Skin Exam: Normal Color, Warm Assessment and Plan - Assessment and Plan (Free Text) Assessment: 57M s/p robotic cholecystectomy and pancreatic cystojejunostomy Plan: will d/c drains today clear for d/c from surgical standpoint f/u in office in 1 week d/w Dr Juanito Park, PGY3
--- NOTE | 2017-10-08 12:55 | CP.PCM.PN ---
Subjective - Date & Time of Evaluation Date of Evaluation: 10/08/17 Time of Evaluation: 07:00 - Subjective Subjective: No + cultures back from [facility]-culture ordered on sunday. Pt denies N/V, F/C. state she is feeling much better. Having BMs and tolerating regular diet. Objective - Vital Signs/Intake and Output Vital Signs (last 24 hours): Temp Pulse Resp BP Pulse Ox 98.8 F 73 20 101/62 95 10/08/17 07:44 10/08/17 07:44 10/08/17 07:44 10/08/17 07:44 10/08/17 07:44 Intake and Output: 10/08/17 10/08/17 06:59 18:59 Intake Total 2350 Output Total 870 Balance 1480 - Medications Medications: Current Medications Acetaminophen (Tylenol 325mg Tab) 650 mg PO Q6 PRN PRN Reason: Fever >100.4 F Last Admin: 10/06/17 18:34 Dose: 650 mg Belladonna/Phenobarbital () 1 tab PO TID [facility] Last Admin: 10/08/17 10:16 Dose: 1 tab Enoxaparin Sodium (Lovenox) 40 mg SC DAILY [facility] Last Admin: 10/08/17 10:17 Dose: 40 mg Metronidazole (Flagyl) 500 mg in 100 mls @ 100 mls/hr IVPB Q8H [facility] PRN Reason: Protocol Last Admin: 10/08/17 08:50 Dose: 100 mls/hr Piperacillin Sod/Tazobactam Sod (Zosyn 3.375 Gm Iv Premix) 3.375 gm in 50 mls @ 100 mls/hr IVPB Q8H [facility] PRN Reason: Protocol Last Admin: 10/08/17 10:17 Dose: 100 mls/hr Lactated Ringer's (Lactated Ringer's) 1,000 mls @ 150 mls/hr IV .Q6H40M [facility] Last Admin: 10/08/17 11:54 Dose: Not Given Metoclopramide HCl (Reglan) 5 mg IVP Q6 [facility] Last Admin: 10/08/17 11:30 Dose: 5 mg Octreotide Acetate (Sandostatin) 300 mcg SC Q8H [facility] Last Admin: 10/08/17 08:52 Dose: 300 mcg Pantoprazole Sodium (Protonix Inj) 40 mg IVP DAILY [facility] Last Admin: 10/08/17 10:16 Dose: 40 mg - Labs Labs: 10/08/17 08:38 10/07/17 07:53 PT 11.1 SECONDS (9.7-12.2) 10/01/17 06:54 INR 1.0 10/01/17 06:54 APTT 28 SECONDS (21-34) 10/01/17 06:54 - Constitutional Appears: Non-toxic, Chronically Ill - Head Exam Head Exam: NORMOCEPHALIC - Eye Exam Eye Exam: PERRL - ENT Exam ENT Exam: Mucous Membranes Dry - Neck Exam Neck Exam: absent: Lymphadenopathy - Respiratory Exam Respiratory Exam: Decreased Breath Sounds - Cardiovascular Exam Cardiovascular Exam: REGULAR RHYTHM - GI/Abdominal Exam GI & Abdominal Exam: Distended, Soft Assessment and Plan (1) Abdominal pain Status: Acute (2) Pancreatic cyst Status: Acute (3) Abscess Status: Acute - Assessment and Plan (Free Text) Assessment: IMPROVING DRAINS OUT
--- NOTE | 2017-10-08 13:55 | PN ---
DATE: The patient is improving. Supportive care, continue treatment, status post surgery. Pee Connell MD
[2017-10-08 16:17] VITALS: BP 101/66; PULSE 80; O2SAT 96
[2017-10-09] MEDS ORDERED: Pantoprazole 40 mg EC Tab PO SCH (10:00)
== END 2017-10-08 16:54 | disposition home or self-care (01) | DRG 193 ==
LOC: C.ER 03:53 → C.9E 06:34 → C.3T 06:47 → C.9S 10-02 13:52 → C.3T 10-02 13:54
PROVIDERS: ADMIT Internal Medicine Pulmonary Disease; ATTEND Internal Medicine Pulmonary Disease
PROC: 0F1 Hepatobiliary System and Pancreas, Bypass (ICD-10-PCS; principal; 2017-10-08)
PROC: 0FT44ZZ Resection of Gallbladder, Percutaneous Endoscopic Approach (ICD-10-PCS; 2017-10-08)
PROC: 8E0W4CZ Robotic Assisted Procedure of Trunk Region, Percutaneous Endoscopic Approach (ICD-10-PCS; 2017-10-08)
DX: K86.3 Pseudocyst of pancreas (principal); K80.12 Calculus of gallbladder with acute and chronic cholecystitis without obstruction; K66.8 Other specified disorders of peritoneum; E46 Unspecified protein-calorie malnutrition; K27.9 Peptic ulcer, site unspecified, unspecified as acute or chronic, without hemorrhage or perforation; F17.210 Nicotine dependence, cigarettes, uncomplicated; D72.829 Elevated white blood cell count, unspecified